=== PATIENT | female | born 1975 | race Caucasian/White ===

== ENCOUNTER 2016-12-10 09:49 | Inpatient (IN) | payer MEDICAID, OTHER ==
[~2016-12-10] VITALS: Ht 167.6 cm; Wt 99.0 kg
[2016-12-10] MEDS ORDERED: NS 1,000 ML IV ONE (10:45)
--- NOTE | 2016-12-10 11:12 | REP ---
PORTABLE CHEST, SINGLE VIEW: COMPARISON: 08/13/2012 There is no evidence of acute infiltrate. No pleural effusion is seen. The heart is normal in size. The mediastinal silhouette is unremarkable. The visualized osseous structures are intact. IMPRESSION: No acute pulmonary disease. Signed by Miller Bedolla MD 12/10/2016 05:02 P
[2016-12-10 12:02] LABS: BASO % 0.4 % (0.0-1.0); EOS # 0.3 K/mm3 (0.0-0.50); EOS % 3.9 % (0.0-3.0); LARGE UNSTAINED CELL # 0.1 K/mm3 (0.0-0.4); LARGE UNSTAINED CELL % 1.2 % (0.0-4.0); LYMPH # 2.3 K/mm3 (1.5-4.5); LYMPH % 27.6 % (24.0-44.0); MEAN CORPUSCULAR HEMOGLOBIN 28.8 pg (27.0-33.0); MEAN CORPUSCULAR HGB CONC 33.4 g/dl (32.0-36.5); MEAN CORPUSCULAR VOLUME 86.3 fl (80.0-96.0); MONO # 0.4 K/mm3 (0.0-0.8); NEUTROPHILS % 61.9 % (36.0-66.0); PLATELET COUNT, AUTOMATED 246 k/mm3 (150-450); RED CELL DISTRIBUTION WIDTH 18.7 % (11.5-14.5)
[2016-12-10 12:14] LABS: CONTROL LINE HCG INT CTR LINE PRESENT
[2016-12-10 12:30] LABS: ALBUMIN 3.3 GM/DL (3.2-5.2); ALKALINE PHOSPHATASE 56 U/L (45-117); ALT/SGPT 32 U/L (12-78); ANION GAP 8 MEQ/L (8-16); AST/SGOT 27 U/L (15-37); BILIRUBIN,DIRECT < 0.1 MG/DL (0.0-0.2); BILIRUBIN,TOTAL 0.2 MG/DL (0.2-1.0); BLOOD UREA NITROGEN 16 MG/DL (7-18); CALCIUM LEVEL 8.2 MG/DL (8.5-10.1); CARBON DIOXIDE LEVEL 28 MEQ/L (21-32); CHLORIDE LEVEL 106 MEQ/L (98-107); CREATININE FOR GFR 0.73 MG/DL (0.55-1.02); GLOMERULAR FILTRATION RATE > 60.0 (>58); GLUCOSE, FASTING 88 MG/DL (70-105); POTASSIUM SERUM 4.1 MEQ/L (3.5-5.1); SODIUM LEVEL 142 MEQ/L (136-145); TOTAL PROTEIN 6.6 GM/DL (6.4-8.2)
--- NOTE | 2016-12-10 13:02 | REP ---
CT Head without contrast HISTORY: Overdose COMPARISON: 09/14/2013 There is no intraparenchymal hemorrhage, acute infarct, mass or midline shift. The ventricular system is normal in appearance. Cavum septi pellucidi and vergae are present. There is no extra cerebral collection. There is no fracture. The visualized sinuses are clear. IMPRESSION: There is no intracranial lesion. Signed by Tico Miller MD 12/10/2016 12:54 P
[2016-12-10] MEDS ORDERED: FLUO10CA8 PO (14:06)
[2016-12-10] MEDS ORDERED: VITMTA PO (14:06)
[2016-12-10] MEDS ORDERED: HYDR-4274 PO (14:06)
[2016-12-10] MEDS ORDERED: LISI-538 PO (14:06)
[2016-12-10] MEDS ORDERED: TRAZ100T4 PO (14:06)
[2016-12-10] MEDS ORDERED: BUSP15TA47 PO (14:06)
[2016-12-10 14:17] LABS: ABG HCO3 21.4 MEQ/L (22.0-26.0); ABG PARTIAL PRESSURE CO2 35.9 mmHg (35.0-45.0); ABG PARTIAL PRESSURE O2 53.3 mmHg (75.0-100.0); ABG STANDARD HCO3 21.7 MEQ/L (22.0-26.0); ABG TOTAL CO2 22.5 MEQ/L (22.0-29.0); ABG pH (ARTERIAL) 7.393 UNITS (7.350-7.450)
[2016-12-10] MEDS ORDERED: ONDANSETRON 4MG/2ML VIAL (J2405) IV PRN (14:45)
[2016-12-10 15:30] VITALS: BP 142/78
[2016-12-10] MEDS: NS 1,000 ML IV SCH (16:01)
[2016-12-10] MEDS: ENOXAPARIN 40 MG/0.4 ML SYRINGE (J1650) SC SCH (16:01)
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
--- NOTE | 2016-12-10 18:32 | REP ---
LEFT ELBOW, FOUR VIEWS: HISTORY: Pain. There is no acute fracture or dislocation. The joint space is normal in appearance. IMPRESSION: There is no acute fracture or dislocation. Signed by Tico Miller MD 12/10/2016 06:36 P
[2016-12-10 20:26] VITALS: BP 160/77
[2016-12-11 00:50] VITALS: BP 138/81
[2016-12-11] MEDS: NS 1,000 ML IV SCH ×3 (03:20→20:33)
[2016-12-11 03:24] VITALS: BP 141/78
[2016-12-11 05:25] LABS: BASO % 0.2 % (0.0-1.0); EOS # 0.3 K/mm3 (0.0-0.50); EOS % 2.9 % (0.0-3.0); LARGE UNSTAINED CELL # 0.2 K/mm3 (0.0-0.4); LARGE UNSTAINED CELL % 1.6 % (0.0-4.0); LYMPH # 2.4 K/mm3 (1.5-4.5); LYMPH % 26.8 % (24.0-44.0); MEAN CORPUSCULAR HEMOGLOBIN 28.3 pg (27.0-33.0); MEAN CORPUSCULAR HGB CONC 33.4 g/dl (32.0-36.5); MEAN CORPUSCULAR VOLUME 84.9 fl (80.0-96.0); MONO # 0.3 K/mm3 (0.0-0.8); MONO % 3.6 % (0.0-5.0); NEUTROPHILS # 5.9 K/mm3 (1.8-7.7); NEUTROPHILS % 64.8 % (36.0-66.0); PLATELET COUNT, AUTOMATED 228 k/mm3 (150-450)
[2016-12-11 05:40] LABS: ALBUMIN 2.8 GM/DL (3.2-5.2); ALBUMIN/GLOBULIN RATIO 0.85 (1.00-1.93); ALKALINE PHOSPHATASE 54 U/L (45-117); ALT/SGPT 30 U/L (12-78); ANION GAP 7 MEQ/L (8-16); AST/SGOT 22 U/L (15-37); BILIRUBIN,TOTAL 0.4 MG/DL (0.2-1.0); BLOOD UREA NITROGEN 11 MG/DL (7-18); CALCIUM LEVEL 7.5 MG/DL (8.5-10.1); CARBON DIOXIDE LEVEL 26 MEQ/L (21-32); CHLORIDE LEVEL 107 MEQ/L (98-107); CREATININE FOR GFR 0.65 MG/DL (0.55-1.02); GLOMERULAR FILTRATION RATE > 60.0 (>58); GLUCOSE, FASTING 102 MG/DL (70-105); SODIUM LEVEL 140 MEQ/L (136-145); TOTAL PROTEIN 6.1 GM/DL (6.4-8.2)
[2016-12-11 08:00] VITALS: BP 126/71
[2016-12-11] MEDS: MULTIVITAMINS/MINERALS THERAP 1 TAB PO SCH (08:48)
[2016-12-11] MEDS: LISINOPRIL 20 MG TAB PO SCH (08:48)
[2016-12-11] MEDS: ENOXAPARIN 40 MG/0.4 ML SYRINGE (J1650) SC SCH (08:48)
--- NOTE | 2016-12-11 10:26 | ECGEPIP ---
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
--- NOTE | 2016-12-11 11:24 | ECGEPIP ---
Stationary ECG Study [facility] Test Date: 2016-12-11 Pat Name: JULIANA KENNEDY Department: Room: - Gender: F Requirements Analyst: EVELYN : 1975 Requested By: VICENTE Woods Order Number: [id number] Reading MD: Vicente Vaughan Measurements Intervals [place] Rate: 76 P: 53 OR: 172 QRS: 27 QRSD: 90 T: 17 QT: 423 QTc: 478 Interpretive Statements SINUS RHYTHM Prolonged QTc Electronically Signed On 12-11-2016 11:24:16 EST by Vicente Vaughan
[2016-12-11 12:00] VITALS: BP 132/75
--- NOTE | 2016-12-11 13:53 | IPNPDOC ---
Text Note Date of Service The patient was seen on 12/11/16. NOTE Subjective: Patient is a 41 year old female with a PMHx of HTN, Depression and Anxiety who presented to the ER with complaints of lethargy and somnolence over the last 11 days. Patient was recently incarcerated for 9 months and has been out for ~2 weeks. She noted that she took her usual medications, and possible a few extra doses, as well as smoking crack. Patient was seen and examined at the bedside. She appears to sleepy, but is awake, alert and oriented. She is complaining about a rash on her body. Objective: Vitals (See below) General: Lying in bed, no acute distress, comfortable, AAOx3 HEENT: NC, AT CVS: RRR, +S1S2 Lungs: Fair air entry b/l, -w/r/r Abdomen: Soft, ND, NT, +BSx4 Extremities: +PPx4, - Edema, - Calf tenderness Skin: Vesicular / scarred / erythematous skin lesions throughout body Assessment and plan: 1. Lethargy - likely 2/2 medication intoxication - 2/2 polypharmacy with Trazodone / Fluoxetine and Crack cocaine - Presented with somnolence and lethargy - Denies any suicidal ideation - Clinically shows improvement - Will continue to monitor on telemetry - Will c/w bedside sitter - c/w IV fluid hydration - Will get Psychiatry consult 2. HTN - BP well controlled - c/w Lisinopril 3. Normocytic anemia - Hg stable 4. Depression and Anxiety - Medications on hold - Awaiting psych evaluation 5. Smoking dependence - c/w nicotine patch 6. DVT prophylaxis - c/w Lovenox VS,Fishbone, I+O VS, Fishbone, I+O Laboratory Tests 12/11/16 05:10 Calcium Level 7.5 L, Aspartate Amino Transf (AST/SGOT) 22, Alanine Aminotransferase (ALT/SGPT) 30, Alkaline Phosphatase 54, Total Bilirubin 0.4 #, Total Protein 6.1 L, Albumin 2.8 L, Red Blood Count 3.68 L, Mean Corpuscular Volume 84.9, Mean Corpuscular Hemoglobin 28.3, Mean Corpuscular Hemoglobin Concent 33.4, Red Cell Distribution Width 18.0 H, Neutrophils (%) (Auto) 64.8, Lymphocytes (%) (Auto) 26.8, Monocytes (%) (Auto) 3.6, Eosinophils (%) (Auto) 2.9, Basophils (%) (Auto) 0.2, Neutrophils # (Auto) 5.9, Lymphocytes # (Auto) 2.4, Monocytes # (Auto) 0.3, Eosinophils # (Auto) 0.3, Basophils # (Auto) 0.0 Vital Signs Date Time Temp Pulse Resp B/P Pulse Ox O2 Delivery O2 Flow Rate FiO2 12/11/16 08:48 141/78 12/11/16 08:00 96.3 78 18 94 Room Air I&O- Last 24 Hours up to 6 AM 12/11/16 06:00 Intake Total 2740 ml Output Total 1500 ml Balance 1240 ml JENS GILBERT MD Dec 11, 2016 13:53
[2016-12-11 16:00] VITALS: BP 132/90
[2016-12-11 20:00] VITALS: BP 156/89
[2016-12-12] VITALS: BP 154/87
[2016-12-12 04:45] VITALS: BP 148/88
[2016-12-12 05:30] LABS: BASO % 0.3 % (0.0-1.0); EOS # 0.4 K/mm3 (0.0-0.50); EOS % 4.7 % (0.0-3.0); LARGE UNSTAINED CELL # 0.2 K/mm3 (0.0-0.4); LARGE UNSTAINED CELL % 2.1 % (0.0-4.0); LYMPH # 2.5 K/mm3 (1.5-4.5); LYMPH % 30.4 % (24.0-44.0); MEAN CORPUSCULAR HEMOGLOBIN 27.6 pg (27.0-33.0); MEAN CORPUSCULAR HGB CONC 32.8 g/dl (32.0-36.5); MEAN CORPUSCULAR VOLUME 84.2 fl (80.0-96.0); MONO # 0.3 K/mm3 (0.0-0.8); MONO % 3.5 % (0.0-5.0); NEUTROPHILS # 4.8 K/mm3 (1.8-7.7); PLATELET COUNT, AUTOMATED 212 k/mm3 (150-450); RED CELL DISTRIBUTION WIDTH 18.1 % (11.5-14.5); WHITE BLOOD COUNT 8.1 K/mm3 (4.0-10.0)
[2016-12-12 05:47] LABS: ALBUMIN 2.9 GM/DL (3.2-5.2); ALBUMIN/GLOBULIN RATIO 0.85 (1.00-1.93); ALKALINE PHOSPHATASE 61 U/L (45-117); ALT/SGPT 33 U/L (12-78); ANION GAP 8 MEQ/L (8-16); AST/SGOT 20 U/L (15-37); BILIRUBIN,TOTAL 0.3 MG/DL (0.2-1.0); BLOOD UREA NITROGEN 7 MG/DL (7-18); CALCIUM LEVEL 7.6 MG/DL (8.5-10.1); CARBON DIOXIDE LEVEL 24 MEQ/L (21-32); CHLORIDE LEVEL 109 MEQ/L (98-107); CREATININE FOR GFR 0.73 MG/DL (0.55-1.02); GLOMERULAR FILTRATION RATE > 60.0 (>58); GLUCOSE, FASTING 108 MG/DL (70-105); MAGNESIUM LEVEL 1.8 MG/DL (1.8-2.4); POTASSIUM SERUM 3.9 MEQ/L (3.5-5.1); SODIUM LEVEL 141 MEQ/L (136-145); TOTAL PROTEIN 6.3 GM/DL (6.4-8.2)
[2016-12-12] MEDS: NS 1,000 ML IV SCH (06:33)
[2016-12-12 08:00] VITALS: BP 160/98
[2016-12-12] MEDS: ENOXAPARIN 40 MG/0.4 ML SYRINGE (J1650) SC SCH (08:26)
[2016-12-12 08:45] VITALS: BP 160/98
[2016-12-12] MEDS: LISINOPRIL 20 MG TAB PO SCH (08:45)
[2016-12-12] MEDS: MULTIVITAMINS/MINERALS THERAP 1 TAB PO SCH (08:45)
[2016-12-12] MEDS ORDERED: HYDROCORTISONE 0.5% CREAM 30 GM TOP PRN (09:00)
[2016-12-12] MEDS ORDERED: HYDR5CR TOP (09:48)
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
[2016-12-12 11:15] VITALS: BP 148/82
--- NOTE | 2016-12-12 12:57 | ECGEPIP ---
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
[2016-12-12] MEDS ORDERED: FLUOXETINE HCL PO (15:50)
[2016-12-12] MEDS ORDERED: TRAZ100T4 PO (15:50)
[2016-12-12] MEDS ORDERED: HYDR-4274 PO (15:50)
--- NOTE | 2016-12-12 15:50 | DSES ---
DATE OF ADMISSION: 12/10/2016 DATE OF DISCHARGE: 12/12/1016 ATTENDING PHYSICIAN: Dr. Jeimy Sears DICTATING PHYSICIAN: Dr. Jeimy Sears PRIMARY CARE PHYSICIAN: Dr. Whitley Villarreal REFERRING PHYSICIAN: None. CONSULTING PHYSICIAN: Dr. Gunderson CONDITION ON DISCHARGE: Stable. FINAL DIAGNOSIS: Lethargy likely secondary to medication intoxication secondary to polypharmacy with trazodone and fluoxetine, as well as crack cocaine. PROCEDURES: None. HISTORY OF PRESENT ILLNESS: This is a 41-year-old female with a past medical history of hypertension, depression, and anxiety, who presented to the emergency room with complaints of lethargy and somnolence over the last 11 days. The patient was recently incarcerated for nine months and has been out for about 2 weeks. She notes that she has taken the usual dose of medications and possibly a few extra doses, as well as smoking crack. HOSPITALIZATION COURSE: 1. Lethargy, likely secondary to medication intoxication secondary to polypharmacy with trazodone, fluoxetine and crack cocaine, who presented with somnolence and lethargy. Denies any suicidal ideation. Clinically, she showed improvement. Poison Control was contacted and we followed their recommendations. The patient had prolonged QTC initially upon admission with QTC around greater than 460. Upon discharge, a repeat QTC was acquired, which showed a QTC around 439, it had been decreasing. The patient was kept on telemetry for greater than 24 hours with bedside sitter. She was continued on intravenous fluid hydration and psychiatric consultation was acquired. 2. Rash, possibly secondary to allergies or eczema. The patient was given hydrocortisone cream. The patient had some relief with hydrocortisone cream. 3. Hypertension. Blood pressure is well controlled with Lisinopril. 4. Normocytic anemia. Hemoglobin remained stable. 5. Depression and anxiety. Medications were put on hold and psychiatry was consulted. 6. Smoking dependence. The patient was given a nicotine patch. 7. Deep vein thrombosis (DVT) prophylaxis. The patient was given Lovenox. DISCHARGE MEDICATIONS: The patient has been discharged home with: - Lisinopril 20 mg by mouth daily - multivitamin one tablet by mouth daily - hydrocortisone topically applied every 8 hours as needed for itching DISCHARGE INSTRUCTIONS: The patient was advised to followup with primary care provider and psychiatry within 7 days. She was transferred to inpatient mental health unit where she will continue to receive treatment. The patient has been advised to remain compliant with treatment plan and medications and return to the emergency room if she experiences any problems. Time spent on discharge: 35 minutes.
[2016-12-12] MEDS ORDERED: BUSP15TA47 PO (15:54)
== END 2016-12-12 13:33 | DRG 812 ==
LOC: M ED 09:49 → M ED INP 14:33 → M PCU 15:30
PROVIDERS: ADMIT Internal Medicine; ATTEND Internal Medicine
DX: T43.211A Poisoning by selective serotonin and norepinephrine reuptake inhibitors, accidental (unintentional), initial encounter (principal); I10 Essential (primary) hypertension; T40.5X1A Poisoning by cocaine, accidental (unintentional), initial encounter; T43.221A Poisoning by selective serotonin reuptake inhibitors, accidental (unintentional), initial encounter; F32.9 Major depressive disorder, single episode, unspecified; F41.9 Anxiety disorder, unspecified; F17.210 Nicotine dependence, cigarettes, uncomplicated; M25.522 Pain in left elbow; D64.9 Anemia, unspecified; F14.10 Cocaine abuse, uncomplicated; F43.10 Post-traumatic stress disorder, unspecified; L30.9 Dermatitis, unspecified; F60.7 Dependent personality disorder; Y92.009 Unspecified place in unspecified non-institutional (private) residence as the place of occurrence of the external cause; Z65.2 Problems related to release from prison; Z79.899 Other long term (current) drug therapy

== ENCOUNTER 2016-12-12 13:35 | Inpatient (IN) | payer MEDICAID ==
[~2016-12-12] VITALS: Ht 165.1 cm; Wt 96.0 kg
[2016-12-12] MEDS: NICOTINE 21MG/24HR 1 EA TRANSDERMAL TD SCH (09:00)
[~2016-12-12 13:35] MED LIST: BUSP15TA47 PO; FLUO10CA8 PO; HYDR-4274 PO; HYDR5CR TOP; LISI-538 PO; TRAZ100T4 PO; VITMTA PO
[2016-12-12 13:53] VITALS: BP 164/86
--- NOTE | 2016-12-12 15:35 | HPEPDOC ---
Medical History and Physical Date of Admission Dec 12, 2016 at 13:35 History and Physical PCP: None ATTENDING: Dr. Vicente Vaughan HPI: 41yoF admitted to [facility] for unspecified depressive disorder, being medically examined today. Pt was admitted to [facility] from 12/10/16-12/12/16 for medical stabilization related to overdose of her trazodone and fluoxetine. Denies any fevers, chills, weakness, fatigue, ROBERT, CP, SOB, cough, palpitations, abdominal pain, N/V/D or changes in bowel or bladder habits. PMHx: Anxiety depression HTN tobacco use PSHX: denies SOCHX: Resides in: [place], living with a friend Marital Status: single Kids: none Employment: unemployed Tobacco use: smoker ETOH: none Illicit Drugs: h/o crack cocaine use. IV Drug Use: Denies Tattoos done unprofessionally: Denies FAMHX: Mother: Alive, heart disease Father: Alive, prostate Ca Siblings: Alive, well Children: none Unexpected deaths due to medical reasons: None. ROS: As noted in HPI, otherwise 11pt ROS of systems reviewed and remarkable only for LMP unknown. PE: GEN: 41yoF, appears stated age. Well-nourished, well developed. No acute distress. Alert and oriented x 3. Pleasant, interactive. HEENT: Normocephalic, atraumatic. Pupils are equal, round, and reactive to light. Extraocular movements are intact. No nystagmus appreciated. Sclera are nonicteric. Conjunctiva without injection. Nose midline. Nasal turbinates without bogginess. EACs both patent BL. TMs both visualized and nuno with good cone of light, no bulging or erythema. No facial asymmetry. Moist mucous membranes. Dentition fair. Pharynx pink and moist, no cobblestoning. Neck supple , trachea midline. No lymphadenopathy or thyromegaly appreciated. CHEST: Regular rate and rhythm, +S1, +S2 LUNGS: Clear to auscultation bilaterally. No wheezes, rales, or rhonchi. Breathing appears symmetric and easy. Patient is speaking in full sentences. No accessory muscle use. ABD: Round, soft, non-tender, non-distended. +Bowel sounds throughout. No rebound or guarding. No costovertebral angle tenderness. EXT: Pulses 2+ bilaterally dorsalis pedis and radial. No lower extremity edema appreciated. SKIN: [place], dry, warm. Capillary refill <2sec. erythematous areas right wrist. appears to be where she had tape applied. There were a few other papular lesions on the wrists B/L. NEURO: Alert and oriented x 3. Cranial nerves III-XII are intact. No focal deficits appreciated. EK12/12/16 SINUS RHYTHM Borderline prolonged QTc Compared to prior tracing of 12-11-16 A&P: 41yoF admitted to [facility] for unspecified depressive disorder 1. Psych. Plan per Psychiatry. EKG on file. 2. Nicotine dependence. Patch available. 3. HTN. Continue Lisinopril. 4. Follow up. No Primary Care Provider. Will attempt to establish PCP on discharge. 5. Dermatitis. Apply Bactroban to areas BID and monitor. 6. Substance use. Per psychiatry. 7. Staff member present throughout exam, Ching FU. Vital Signs Vital Signs Label Value Date Time Patient Temperature 98.0 degrees F 12/12/16 1353 Temperature Source Tympanic 12/12/16 1353 Pulse 80 12/12/16 1353 Respiratory Rate 16 bpm 12/12/16 1353 Blood Pressure Assessment 164/86 (112) 12/12/16 1353 Bedside Pulse Oximetry 98 % 12/12/16 1353 Item Value Date Time Oxygen Delivery Method Room Air 12/12/16 1353 Laboratory Data Labs 24H Item Value Date Time White Blood Count 8.1 K/mm3 12/12/16 0510 Red Blood Count 3.69 M/mm3 L 12/12/16 0510 Hemoglobin 10.2 g/dl L 12/12/16 0510 Hematocrit 31.1 % L 12/12/16 0510 Mean Corpuscular Volume 84.2 fl 12/12/16 0510 Mean Corpuscular Hemoglobin 27.6 pg 12/12/16 0510 Mean Corpuscular Hemoglobin Concent 32.8 g/dl 12/12/16 0510 Red Cell Distribution Width 18.1 % H 12/12/16 0510 Platelet Count 212 k/mm3 12/12/16 0510 Sodium Level 141 MEQ/L 12/12/16 0510 Potassium Level 3.9 MEQ/L 12/12/16 0510 Chloride Level 109 MEQ/L H 12/12/16 0510 Carbon Dioxide Level 24 MEQ/L 12/12/16 0510 Anion Gap 8 MEQ/L 12/12/16 0510 Blood Urea Nitrogen 7 MG/DL 12/12/16 0510 Creatinine 0.73 MG/DL 12/12/16 0510 Glomerular Filtration Rate > 60.0 12/12/16 0510 Fasting Glucose 108 MG/DL H 12/12/16 0510 Calcium Level 7.6 MG/DL L 12/12/16 0510 Magnesium Level 1.8 MG/DL 12/12/16 0510 Total Bilirubin 0.3 MG/DL 12/12/16 0510 Aspartate Amino Transf (AST/SGOT) 20 U/L 12/12/16 0510 Alanine Aminotransferase (ALT/SGPT) 33 U/L 12/12/16 0510 Alkaline Phosphatase 61 U/L 12/12/16 0510 Total Protein 6.3 GM/DL L 12/12/16 0510 Albumin 2.9 GM/DL L 12/12/16 0510 Albumin/Globulin Ratio 0.85 L 12/12/16 0510 Thyroid Stimulating Hormone (TSH) 2.630 uIU/ML 12/10/16 1153 Human Chorionic Gonadotropin, Qual NEGATIVE 12/10/16 1153 Home Medications Scheduled ([Fluoxetine Hcl]) 30 MG PO DAILY DEPRESSION Buspirone HCl (Buspirone HCl) 15 Mg Tab 15 MG PO QID ANXIETY/AGITATION Hydroxyzine HCl (Hydroxyzine HCl) 50 Mg Tab 50 MG PO TID ANXIETY Lisinopril (Lisinopril) 20 Mg Tab 20 MG PO DAILY NEEDS REFILLS - SEE COMMENTS Multivitamins *[facility] STOCKED* (Thera M Plus *[facility] STOCKED*) 1 Tab Tab 1 TAB PO DAILY Trazodone HCl (Trazodone HCl) 100 Mg Tab 100 MG PO QHS INSOMNIA Scheduled PRN Hydrocortisone (Hydrocortisone 0.5%) 1 Dose/30 Gm Cream 1 DOSE TOP Q8H PRN PRN ITCHING Allergies Coded Allergies: No Known Allergies (Unverified , 12/10/16) Maggie Covarrubias Dec 12, 2016 15:35
[2016-12-12] MEDS ORDERED: TRAZ100T4 PO (15:50)
[2016-12-12] MEDS ORDERED: HYDR-4274 PO (15:50)
[2016-12-12] MEDS ORDERED: FLUOXETINE HCL PO (15:50)
[2016-12-12] MEDS ORDERED: BUSP15TA47 PO (15:54)
[2016-12-12] MEDS ORDERED: MAALOX 30 ML SUSP *UDC PO PRN (16:45)
[2016-12-12] MEDS ORDERED: MOM 30ML SUSPENSION UDC PO PRN (16:45)
[2016-12-12] MEDS: busPIRone 5 MG TAB PO SCH ×2 (17:00→20:53)
[2016-12-12] MEDS: MUPIROCIN 2% OINT 22 GM TUBE TOP SCH (20:26)
[2016-12-12] MEDS: hydrOXYzine 50 MG TAB PO SCH (20:53)
[2016-12-12] MEDS: traZODone 50 MG TAB PO PRN (20:53)
[2016-12-13 07:20] VITALS: BP 168/92
[2016-12-13] MEDS ORDERED: NICOTINE 21MG/24HR 1 EA TRANSDERMAL TD SCH ×2 (09:00)
[2016-12-13] MEDS: MUPIROCIN 2% OINT 22 GM TUBE TOP SCH ×2 (09:10→22:10)
[2016-12-13] MEDS: FLUoxetine 10 MG CAP PO SCH (09:11)
[2016-12-13] MEDS: busPIRone 5 MG TAB PO SCH ×4 (09:11→22:11)
[2016-12-13] MEDS: MULTIVITAMINS/MINERALS THERAP 1 TAB PO SCH (09:11)
[2016-12-13] MEDS: LISINOPRIL 20 MG TAB PO SCH (09:13)
[2016-12-13] MEDS: hydrOXYzine 50 MG TAB PO SCH ×3 (09:13→22:11)
[2016-12-13] MEDS: NICOTINE 21MG/24HR 1 EA TRANSDERMAL TD SCH (09:15)
[2016-12-13] MEDS: ACETAMINOPHEN TAB 650MG DOSE (2X325MG) PO PRN ×2 (15:23→22:11)
[2016-12-13 18:00] VITALS: BP 130/70
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
[2016-12-13] MEDS: traZODone 50 MG TAB PO PRN (22:11)
[2016-12-14 06:52] VITALS: BP 143/95
[2016-12-14] MEDS: busPIRone 5 MG TAB PO SCH ×4 (08:09→22:19)
[2016-12-14] MEDS: FLUoxetine 10 MG CAP PO SCH (08:09)
[2016-12-14] MEDS: LISINOPRIL 20 MG TAB PO SCH (08:09)
[2016-12-14] MEDS: hydrOXYzine 50 MG TAB PO SCH ×3 (08:10→22:19)
[2016-12-14] MEDS: MULTIVITAMINS/MINERALS THERAP 1 TAB PO SCH (08:10)
[2016-12-14] MEDS: NICOTINE 21MG/24HR 1 EA TRANSDERMAL TD SCH (08:10)
[2016-12-14] MEDS: MUPIROCIN 2% OINT 22 GM TUBE TOP SCH ×2 (08:10→22:20)
[2016-12-14] MEDS: ACETAMINOPHEN TAB 650MG DOSE (2X325MG) PO PRN (17:48)
[2016-12-14 18:00] VITALS: BP 152/70
[2016-12-14] MEDS: traZODone 50 MG TAB PO PRN (23:46)
[2016-12-15] MEDS: ACETAMINOPHEN TAB 650MG DOSE (2X325MG) PO PRN ×4 (01:14→23:02)
[2016-12-15 06:00] VITALS: BP 126/88
[2016-12-15] MEDS: MUPIROCIN 2% OINT 22 GM TUBE TOP SCH ×2 (08:31→21:33)
[2016-12-15] MEDS: busPIRone 5 MG TAB PO SCH ×4 (08:36→21:32)
[2016-12-15] MEDS: MULTIVITAMINS/MINERALS THERAP 1 TAB PO SCH (08:37)
[2016-12-15] MEDS: hydrOXYzine 50 MG TAB PO SCH ×3 (08:37→21:32)
[2016-12-15] MEDS: FLUoxetine 10 MG CAP PO SCH (08:37)
[2016-12-15] MEDS: LISINOPRIL 20 MG TAB PO SCH (08:37)
[2016-12-15] MEDS: NICOTINE 21MG/24HR 1 EA TRANSDERMAL TD SCH (08:37)
--- NOTE | 2016-12-15 09:31 | IPN ---
DATE: 12/14/2016 SUBJECTIVE: "I'm feeling much better." OBJECTIVE: The patient is improving slowly. The patient does not have psychomotor retardation. Her facial expression is normalized. The patient is interacting well with other peers and staff. The patient is denying suicidal or homicidal ideation. There is no evidence of psychotic symptoms. No auditory or visual hallucinations or delusions. MENTAL STATUS EXAMINATION: The patient is dressed in [facility]. She has fair eye contact. Speech is normal in rate, volume, articulation, is coherent and spontaneous. Mood is euthymic. Affect is congruent with mood. No evidence of delusions or hallucinations. Memory is fair. The patient is fully oriented. Associations are intact. Thinking is logical. Thought content is appropriate. The patient is denying suicidal or homicidal ideation. Insight and judgment is fair. ASSESSMENT: 1. Suboxone/crack overdose. 2. Depression. 3. Polysubstance dependency. PLAN: 1. Continue with Prozac 30 mg by mouth every morning. 2. Continue with BuSpar 50 mg by mouth four times a day. 3. Continue with trazodone 100 mg by mouth at bedtime. 4. Continue medication management, individual and group therapy.
[2016-12-15 18:00] VITALS: BP 152/80
[2016-12-15 21:39] VITALS: BP 152/80
[2016-12-15] MEDS: traZODone 50 MG TAB PO PRN (23:02)
[2016-12-16 06:25] VITALS: BP 158/78
[2016-12-16] MEDS: NICOTINE 21MG/24HR 1 EA TRANSDERMAL TD SCH (08:31)
[2016-12-16] MEDS: FLUoxetine 10 MG CAP PO SCH (08:32)
[2016-12-16] MEDS: busPIRone 5 MG TAB PO SCH ×4 (08:32→21:19)
[2016-12-16] MEDS: hydrOXYzine 50 MG TAB PO SCH ×3 (08:32→21:19)
[2016-12-16] MEDS: ACETAMINOPHEN TAB 650MG DOSE (2X325MG) PO PRN ×3 (08:32→23:00)
[2016-12-16] MEDS: MUPIROCIN 2% OINT 22 GM TUBE TOP SCH ×2 (08:33→21:00)
[2016-12-16] MEDS: LISINOPRIL 20 MG TAB PO SCH (08:33)
[2016-12-16] MEDS: MULTIVITAMINS/MINERALS THERAP 1 TAB PO SCH (08:33)
[2016-12-16 18:00] VITALS: BP 119/64
[2016-12-16] MEDS: traZODone 50 MG TAB PO PRN (22:59)
--- NOTE | 2016-12-17 00:18 | IPN ---
DATE: 12/15/2016 SUBJECTIVE: "I'm feeling a lot better." OBJECTIVE: The patient is significantly improved. The patient is able to smile and joke, is interacting very well with other patients and staff. There is no psychomotor retardation. The patient denies feelings of depression. Denies suicidal or homicidal ideation. No evidence of psychotic features. MENTAL STATUS EXAMINATION: The patient is dressed in [facility]. The patient is calm and cooperative. Has fair eye contact. Speech is normal in rate, volume, articulation, is coherent and is spontaneous. Mood is euthymic. Affect is congruent with mood. No delusions or hallucinations. Memory is fair. The patient is fully oriented. Associations are intact. Thinking is logical. Thought content is appropriate. The patient denies suicidal or homicidal ideation. Insight and judgment is fair. ASSESSMENT: 1. Suboxone/crack cocaine overdose. 2. Depression. 3. Polysubstance dependency. PLAN: 1. Continue Prozac 30 mg by mouth every morning. 2. Continue BuSpar 15 mg by mouth four times a day. 3. Continue trazodone 100 mg by mouth nightly. 4. Continue medication management, individual and group therapy.
[2016-12-17 06:37] VITALS: BP 135/80
[2016-12-17] MEDS: ACETAMINOPHEN TAB 650MG DOSE (2X325MG) PO PRN ×2 (08:17→22:48)
[2016-12-17] MEDS: FLUoxetine 10 MG CAP PO SCH (08:18)
[2016-12-17] MEDS: LISINOPRIL 20 MG TAB PO SCH (08:18)
[2016-12-17] MEDS: MULTIVITAMINS/MINERALS THERAP 1 TAB PO SCH (08:18)
[2016-12-17] MEDS: NICOTINE 21MG/24HR 1 EA TRANSDERMAL TD SCH (08:18)
[2016-12-17] MEDS: hydrOXYzine 50 MG TAB PO SCH ×3 (08:18→20:56)
[2016-12-17] MEDS: busPIRone 5 MG TAB PO SCH ×4 (08:18→20:56)
[2016-12-17] MEDS: MUPIROCIN 2% OINT 22 GM TUBE TOP SCH ×2 (09:00→20:55)
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
[2016-12-17 22:26] VITALS: BP 134/78
[2016-12-17] MEDS: traZODone 50 MG TAB PO PRN (22:48)
[2016-12-18 06:18] VITALS: BP 155/74
[2016-12-18] MEDS ORDERED: NICO21PAT TD (08:18)
[2016-12-18 08:21] VITALS: BP 138/75
[2016-12-18] MEDS: busPIRone 5 MG TAB PO SCH (08:21)
[2016-12-18] MEDS: FLUoxetine 10 MG CAP PO SCH (08:21)
[2016-12-18] MEDS: MULTIVITAMINS/MINERALS THERAP 1 TAB PO SCH (08:21)
[2016-12-18] MEDS: NICOTINE 21MG/24HR 1 EA TRANSDERMAL TD SCH (08:21)
[2016-12-18] MEDS: LISINOPRIL 20 MG TAB PO SCH (08:21)
[2016-12-18] MEDS: hydrOXYzine 50 MG TAB PO SCH (08:21)
[2016-12-18] MEDS: ACETAMINOPHEN TAB 650MG DOSE (2X325MG) PO PRN (08:22)
[2016-12-18] MEDS: MUPIROCIN 2% OINT 22 GM TUBE TOP SCH (08:23)
[2016-12-18] MEDS ORDERED: TRAZO50TA PO (10:27)
[2016-12-18] MEDS ORDERED: FLUO10CA9 PO (10:27)
[2016-12-18] MEDS ORDERED: BUSP5TA PO (10:27)
[2016-12-18] MEDS ORDERED: HYDRO50TAB PO (10:27)
[2016-12-18] MEDS ORDERED: LISI-538 PO (10:43)
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
== END 2016-12-18 10:50 | disposition home or self-care (01) | DRG 755 ==
LOC: M PSY 13:35
PROVIDERS: ADMIT Psychiatry & Neurology Psychiatry; ATTEND Psychiatry & Neurology Psychiatry
DX: F43.23 Adjustment disorder with mixed anxiety and depressed mood (principal); I10 Essential (primary) hypertension; F43.10 Post-traumatic stress disorder, unspecified; F32.9 Major depressive disorder, single episode, unspecified; F17.210 Nicotine dependence, cigarettes, uncomplicated; Z65.2 Problems related to release from prison; F19.10 Other psychoactive substance abuse, uncomplicated; Z79.899 Other long term (current) drug therapy

== ENCOUNTER → 2017-01-06 | Outpatient (REF) | payer MEDICAID ==
[~2017-01-06] MED LIST changes: +BUSP5TA PO; +FLUO10CA9 PO; +FLUOXETINE HCL PO; +HYDRO50TAB PO; +NICO21PAT TD; +TRAZO50TA PO
== END ==
LOC: M LAB REF 17:21
PROVIDERS: ATTEND Physician Assistant Medical
DX: N39.0 Urinary tract infection, site not specified (principal)

== ENCOUNTER 2017-03-08 19:21 | Emergency (ER) | payer MEDICAID ==
[~2017-03-08] VITALS: Ht 165.1 cm; Wt 95.3 kg
[2017-03-08 19:22] VITALS: BP 156/79
[2017-03-08] MEDS ORDERED: XANA1TAB2 PO (19:30)
[2017-03-08] MEDS ORDERED: UNIS25TA2 PO (19:30)
--- NOTE | 2017-03-09 09:28 | ECGEPIP ---
Stationary ECG Study [facility] - ED Test Date: 2017-03-08 Pat Name: JULIANA KENNEDY Department: Room: - Gender: F Synchronizer: ct : 1975 Requested By: PORFIRIO Lamb PA-C Order Number: [id number] Reading MD: Murphy Acosta Measurements Intervals [place] Rate: 71 P: 58 TN: 153 QRS: 38 QRSD: 89 T: 17 QT: 415 QTc: 451 Interpretive Statements SINUS RHYTHM MODERATE VOLTAGE CRITERIA FOR LVH, CONSIDER NORMAL VARIANT SIMILAR TO 12/12/16 Electronically Signed On 03-09-2017 9:28:21 EDT by Murphy Acosta
== END 2017-03-08 20:21 | disposition home or self-care (01) ==
LOC: M ED 19:49
DX: F41.9 Anxiety disorder, unspecified (principal); I10 Essential (primary) hypertension; G56.03 Carpal tunnel syndrome, bilateral upper limbs

== ENCOUNTER 2018-01-07 14:08 | Emergency (ER) | payer MEDICAID | END 2018-01-07 15:47 | disposition home or self-care (01) | LOC: M ED 14:08 | DX: Z76.0 Encounter for issue of repeat prescription (principal); Z79.899 Other long term (current) drug therapy; I10 Essential (primary) hypertension; J44.9 Chronic obstructive pulmonary disease, unspecified; F33.9 Major depressive disorder, recurrent, unspecified; F41.9 Anxiety disorder, unspecified; F43.10 Post-traumatic stress disorder, unspecified; F17.210 Nicotine dependence, cigarettes, uncomplicated | CPT/HCPCS: 99283 ==

== ENCOUNTER 2018-04-01 11:55 | Emergency (ER) | payer MEDICAID, SELFPAY, OTHER | END 2018-04-01 13:19 | disposition home or self-care (01) | LOC: M ED 11:55 | DX: Z76.0 Encounter for issue of repeat prescription (principal); F17.200 Nicotine dependence, unspecified, uncomplicated; Z79.899 Other long term (current) drug therapy | CPT/HCPCS: 99282 ==

== ENCOUNTER 2019-05-17 19:00 | Emergency (ER) | payer MEDICAID, SELFPAY ==
[~2019-05-17] VITALS: Ht 165.1 cm; Wt 79.5 kg
[~2019-05-17 19:00] MED LIST changes: +ALBU17IN2 INH; +BUSP30TA PO; +E-ZMIS3 XX; +FLUO20CA8 PO; +FLUO40CA PO; -HYDR-4274 PO; +HYDR100C PO; +HYDR1TAB33 PO; +HYDR50TA70 PO; -HYDRO50TAB PO; +MIRT30TA3 PO; +PROAAER10 INH; +REME30TA PO; +TRAZ-163 PO; -TRAZ100T4 PO; +TRAZ1TAB10 PO; -TRAZO50TA PO; +UNIS25TA3 PO; +VENTAER IN; +XANA1TAB2 PO
[2019-05-17 19:01] VITALS: BP 140/78
== END 2019-05-17 19:45 | disposition left against medical advice (07) ==
LOC: M ED 19:00
DX: N93.9 Abnormal uterine and vaginal bleeding, unspecified (principal); Z53.21 Procedure and treatment not carried out due to patient leaving prior to being seen by health care provider

== ENCOUNTER → 2019-05-23 | Outpatient (REF) | payer MEDICAID, SELFPAY ==
[2019-05-23 15:04] LABS: HCG, SERUM QUALITATIVE POSITIVE (NEGATIVE)
[2019-05-23 15:15] LABS: HCG, SERUM QUANTITATIVE 628 MIU/ML
== END ==
LOC: M LAB REF 14:22
PROVIDERS: ATTEND Nurse Practitioner Family
DX: Z34.82 Encounter for supervision of other normal pregnancy, second trimester (principal)

== ENCOUNTER 2019-06-20 12:09 | Emergency (ER) | payer MEDICAID ==
[~2019-06-20] VITALS: Ht 165.1 cm; Wt 79.5 kg
[2019-06-20 12:09] VITALS: BP 145/70
[~2019-06-20 12:09] MED LIST changes: -ALBU17IN2 INH; +PROV108A INH
[2019-06-20] MEDS ORDERED: REME30TA PO (12:15)
[2019-06-20] MEDS ORDERED: OFLOSO OTIC (12:49)
== END 2019-06-20 13:01 | disposition home or self-care (01) ==
LOC: M ED 12:09
DX: H72.2X1 Other marginal perforations of tympanic membrane, right ear (principal); I10 Essential (primary) hypertension; J44.9 Chronic obstructive pulmonary disease, unspecified; F17.200 Nicotine dependence, unspecified, uncomplicated; Z79.899 Other long term (current) drug therapy; Z33.1 Pregnant state, incidental; Z3A.01 Less than 8 weeks gestation of pregnancy; Z86.59 Personal history of other mental and behavioral disorders

== ENCOUNTER → 2019-09-13 | Outpatient (CLI) | payer MEDICAID ==
[~2019-09-13] MED LIST changes: +FLUO10CA15 PO; -FLUO10CA8 PO; +FLUO20CA20 PO; -FLUO20CA8 PO; +OFLOSO OTIC
--- NOTE | 2019-09-13 10:31 | REP ---
Clinical: Anatomical evaluation. Comparison: None . Findings: Examination demonstrates a single live intrauterine in breech presentation. motion is identified by technologist. Placenta is noted posterior and grade zero without evidence for placenta previa or abruption. Amniotic fluid volume is normal. Cervix measures 3.8 cm in length and appears closed. No evidence for nuchal cord. Left uterine fibroids measures 6.4 x 6.6 x 6.0 cm and 4.4 x 3.9 x 4.3 cm. Right uterine fibroid measures 5.0 x 3.9 x 4.7 cm. Gestational age by LMP 20 weeks 5 days with MIKAL 01/26/2020 . Gestational age by current measurements 21 weeks 2 days with MIKAL 01/22/2020 . FHR equals 147 beats per minute. BPD 5.1 cm 21 weeks 2 days HC 19.1 cm 21 weeks 2 days AC 16.4 cm 21 weeks 3 days FL 3.5 cm 21 weeks 0 days HL 3.4 cm 21 weeks 3 days HC/AC ratio 1.16 Estimated weight 412 grams ( 67th percentile). Anatomical assessment demonstrates normal structures including cranium, cavum, cerebellum/posterior fossa, lungs, diaphragm, stomach, cord insertion/three-vessel cord, kidneys/bladder, spine, and upper extremities. Limited evaluation of the cord plexus, facial features, heart/ventricular outflow tracts, and lower extremities. Impression: 1. Single live intrauterine in breech presentation demonstrating appropriate interval growth. 2. Anatomical limitations as noted above may warrant reevaluation and follow-up. 3. Multiple uterine fibroids. Electronically Signed by William Styles MD 09/13/2019 10:22 A
== END ==
LOC: M RAD 09:38
PROVIDERS: ATTEND Advanced Practice Midwife
DX: O09.512 Supervision of elderly primigravida, second trimester (principal); O34.10 Maternal care for benign tumor of corpus uteri, unspecified trimester; D25.9 Leiomyoma of uterus, unspecified; Z3A.21 21 weeks gestation of pregnancy

== ENCOUNTER → 2019-11-08 | Outpatient (CLI) | payer OTHER ==
[~2019-11-08] MED LIST changes: -TRAZ-163 PO; +TRAZ-257 PO
--- NOTE | 2019-11-09 01:31 | REP ---
Clinical: Growth evaluation. Comparison: 09/13/2019 . Findings: Examination demonstrates a single live intrauterine in cephalic presentation. motion is identified by technologist. Placenta is noted posterior/fundal and grade I without evidence for placenta previa or abruption. Amniotic fluid volume is normal. Cervix measures 4.2 cm in length and appears closed. Nuchal cord cannot be excluded. Left intramural fibroids measure 4.8 cm and 5.9 cm maximal diameter along with right intramural fibroid measuring 3.7 cm maximal diameter. Gestational age by LMP 28 weeks 5 days with MIKAL 01/26/2020 . Gestational age by current measurements 29 weeks to date with MIKAL 01/22/2020 . FHR equals 124 beats per minute. BPD 7.3 cm 29 weeks 2 days HC 26.9 cm 29 weeks 2 days AC 25.2 cm 29 weeks 3 days FL 5.5 cm 29 weeks 1 day HL 5.0 cm 29 weeks 3 days HC/AC ratio 1.07 Estimated weight 1368 grams ( 56th percentile). Amniotic fluid index: 17.9 cm Umbilical cord SD ratio: 3.10 Impression: 1. Single live intrauterine in cephalic presentation demonstrating appropriate interval growth. 2. Nuchal cord cannot be excluded. 3. Myomatous changes to the uterus. Electronically Signed by William Styles MD 11/09/2019 01:23 A
== END ==
LOC: M RAD 11:17
PROVIDERS: ATTEND Specialist
DX: Z36.2 Encounter for other antenatal screening follow-up (principal); O09.522 Supervision of elderly multigravida, second trimester; Z3A.29 29 weeks gestation of pregnancy

== ENCOUNTER → 2019-11-08 | Outpatient (CLI) | payer OTHER ==
[2019-11-08 11:35] LABS: HEMATOCRIT 34.4 % (36.0-47.0); HEMOGLOBIN 10.6 g/dl (12.0-15.5); MEAN CORPUSCULAR HEMOGLOBIN 28.3 pg (27.0-33.0); MEAN CORPUSCULAR HGB CONC 30.8 g/dl (32.0-36.5); MEAN CORPUSCULAR VOLUME 91.7 fl (80.0-96.0); PLATELET COUNT, AUTOMATED 179 10^3/uL (150-450); RED BLOOD COUNT 3.75 10^6/uL (4.00-5.40); WHITE BLOOD COUNT 10.5 10^3/uL (4.0-10.0)
[2019-11-08 12:02] LABS: GLUCOSE CHALLENGE TEST 1 HOUR 136 MG/DL (LESS THAN 140)
[2019-11-08 12:29] LABS: RUBELLA IgG QUALITATIVE IMMUNE (IMMUNE)
[2019-11-08 12:58] LABS: HIV 1&2 SCREEN CENTAUR NEGATIVE (NEGATIVE)
[2019-11-08 13:14] LABS: CHLAMYDIA DNA AMPLIFICATION NEGATIVE (NEGATIVE); GC DNA AMPLIFICATION NEGATIVE (NEGATIVE)
== END ==
LOC: M LAB 10:23
PROVIDERS: ATTEND Advanced Practice Midwife
DX: Z36.89 Encounter for other specified antenatal screening (principal); O09.513 Supervision of elderly primigravida, third trimester; O09.33 Supervision of pregnancy with insufficient antenatal care, third trimester
CPT/HCPCS: 36415; 82950; 84600; 85027; 86762; 86780; 86803; 86850; 86901; 87088; 87186; 87350; 87389; 87491; 87591; G0480

== ENCOUNTER → 2019-11-23 | Outpatient (CLI) | payer OTHER | LOC: M PLALAB 11:15 | PROVIDERS: ATTEND Advanced Practice Midwife | DX: Z36.8A Encounter for antenatal screening for other genetic defects (principal); Z36.89 Encounter for other specified antenatal screening ==

== ENCOUNTER → 2020-01-05 | Outpatient (REF) | payer OTHER | LOC: M SFHCWAGY 12:47 | PROVIDERS: ATTEND Specialist | DX: Z34.03 Encounter for supervision of normal first pregnancy, third trimester (principal) ==

== ENCOUNTER 2020-01-18 07:38 | Inpatient (IN) | payer OTHER ==
[~2020-01-18] VITALS: Ht 165.1 cm; Wt 106.7 kg
[2020-01-18] VITALS (16 sets, daily range): BP systolic 114–182; BP diastolic 56–90
[2020-01-18 09:31] LABS: HEMATOCRIT 35.6 % (36.0-47.0); HEMOGLOBIN 11.4 g/dl (12.0-15.5); MEAN CORPUSCULAR HEMOGLOBIN 28.4 pg (27.0-33.0); MEAN CORPUSCULAR VOLUME 88.8 fl (80.0-96.0); PLATELET COUNT, AUTOMATED 134 10^3/uL (150-450); RED BLOOD COUNT 4.01 10^6/uL (4.00-5.40); WHITE BLOOD COUNT 9.6 10^3/uL (4.0-10.0)
[2020-01-18] MEDS: miSOPROStol 50 MCG 1/2 TAB (S0191) PO SCH ×3 (09:32→17:38)
[2020-01-18] MEDS ORDERED: PRENTAB9 PO (10:25)
--- NOTE | 2020-01-18 10:40 | HPEPDOC ---
Obstetrical History & Physical General Date of Admission Jan 18, 2020 at 07:38 History of Present Illness 44-year-old 1 presents at 39 weeks 0 days estimated gestational age by 13 week ultrasound presents for induction labor secondary to chronic hypertension. course also remarkable for advanced maternal age, depr ession, anxiety, PTSD, tobacco use, fibroid uterus and compliance of care. 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 BREAST: . ABDOMEN: Gravid and non-tender to touch. FETUS: Is vertex (VTX) by sterile vaginal examination (SVE), fetus is vertex (VTX) by Froilan. HEART RATE: Regular rate and rhythm. LUNGS: Clear to auscultation (CTA). Vital Signs/I&O Vital Signs Date Time Temp Pulse Resp B/P (MAP) Pulse Ox O2 Delivery O2 Flow Rate FiO2 01/18/20 09:20 93 124/74 (91) Laboratory Data 24H LABS Laboratory Tests 2 01/18/20 09:16: Nucleated Red Blood Cells % (auto) 0.0 CBC/BMP Laboratory Tests 01/18/20 09:16 Pertinent Laboratoy Data Blood Type: O+ RBC Antibody Screen: Negative HIV: Negative Hepatitis C: Negative Rapid Plasma Reagin: Nonreactive Rubella: Immune Chlamydia/Gonorrhea: Negative Group B Streptococcus: Negative Anatomy Ultrasound Placenta Location: Posterior Placenta Previa: No Other Ultrasounds 3 Fibroids ranging from 3-5 cm Vaginal Examination Station: -3 Cervical Consistency: Firm Cervical Position: Posterior Presentation: Cephalic presentation Assessment Variability: Moderate Accelerations: Positive Decelerations: None, Variable Tocometer Contractions: No Assessment/Plan Assessment 44-year-old 1 at 39 weeks 0 days by 13 week ultrasound, here for induction of labor secondary to chronic hypertension. History of anxiety, depression and PTSD. Tobacco use throughout . Fibroid uterus. Poor compliance with obstetrical care. Reassuring status Plan Admit and orient. 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 Diet: Regular. Group B Streptococcus (GBS) negative. Labs and intravenous (IV) per unit protocol. Counseled on Pitocin and induction of labor (IOL). Anticipate normal spontaneous delivery (). C-S as appropriate. Labor and Delivery Counseling Patient's been thoroughly counseled regards, induction of labor. Discussed medication as well as procedures performed labor and delivery. She has been verbally consented for emergency surgery. Blood products anesthesia desires to proceed with admission. Will initiate her induction with 50 g oral misoprostol MYNOR BARRON MD. Jan 18, 2020 10:40
[2020-01-18] MEDS ORDERED: TERBUTALINE SULFATE 1 MG/ML VIAL (J3105) SC STA (18:45)
[2020-01-18] MEDS ORDERED: TERBUTALINE SULFATE 1 MG/ML VIAL (J3105) As Ordered ONE (18:45)
[2020-01-18] MEDS ORDERED: LR 1,000 ML IV ONE (19:00)
[2020-01-18] MEDS: ACETAMINOPHEN 500 MG TAB PO PRN (19:35)
--- NOTE | 2020-01-18 20:31 | IPNPDOC ---
Obstetrical Progress Note Date of Service Jan 18, 2020 Subjective Patient received her third dose of misoprostol at approximately 1730. Shortly after started having repetitive variable decelerations. Position was changed was initiated. Patient was given terbutaline with resolution of variable decelerations. Current tracing is a category 1 Objective Vital Signs Date Time Temp Pulse Resp B/P (MAP) Pulse Ox O2 Delivery O2 Flow Rate FiO2 01/18/20 17:41 98.9 85 18 158/70 (99) Assessment Variability: Moderate Accelerations: Positive Heart Rate Tracing: Category I Tocometer Contractions: No Assessment and Plan Age: 44 : 1 Weeks & Days 39 Status: Reassuring Additional Comments Plan to start Pitocin at 2029. I discussed concerns heart tracing earlier with patient. We discussed that if tracing continues with persistent category 2. Proceed with section. MYNOR BARRON MD. Jan 18, 2020 20:31
[2020-01-18 21:14] LABS: AMPHETAMINES URINE REFLEX NEGATIVE (NEGATIVE); BARBITURATES URINE REFLEX NEGATIVE (NEGATIVE); BENZODIAZEPINES URINE REFLEX NEGATIVE (NEGATIVE); CANNABINOIDS URINE REFLEX NEGATIVE (NEGATIVE); COCAINE METABOLITE URINE REFLE NEGATIVE (NEGATIVE); METHADONE URINE REFLEX NEGATIVE (NEGATIVE); OPIATES URINE REFLEX NEGATIVE (NEGATIVE); PHENCYCLIDINE URINE REFLEX NEGATIVE (NEGATIVE)
[2020-01-18] MEDS ORDERED: OXYTOCIN 30 UNITS IN 0.9% NaCl 500ML IV BAG (J2590) As Ordered ONE (21:51)
[2020-01-18] MEDS ORDERED: OXYTOCIN DRIP 30 UNITS in IV 1 EA IV SCH (23:00)
[2020-01-19] VITALS (45 sets, daily range): BP systolic 122–179; BP diastolic 63–98
[2020-01-19] MEDS ORDERED: BUTORPHANOL 2 MG/ML INJ (J0595) IV ONE (02:30)
[2020-01-19] MEDS ORDERED: PROMETHAZINE INJ 25 MG/ML VIAL (J2550) IV PRN (02:30)
[2020-01-19] MEDS: ACETAMINOPHEN 500 MG TAB PO PRN ×2 (03:39→10:14)
[2020-01-19 06:55] LABS: ALT/SGPT 31 U/L (12-78); BILIRUBIN,TOTAL 0.3 MG/DL (0.2-1.0); CREATININE FOR GFR 0.77 MG/DL (0.55-1.30); GLOMERULAR FILTRATION RATE > 60.0 (>58); LDH LACTATE DEHYDROGENASE 171 U/L (84-246)
[2020-01-19 06:57] LABS: TOTAL PROTEIN,RANDOM URINE 59.2 MG/DL (0.0-12.0)
[2020-01-19] MEDS: LR 1,000 ML IV SCH ×2 (12:00→12:02)
[2020-01-19] MEDS ORDERED: AZITHROMYCIN INJ 500MG VIAL (J0456 PER 500MG) As Ordered ONE (15:26)
[2020-01-19] MEDS ORDERED: ceFAZolin 2 GM/D5W 50 ML IV BAG (J0690 PER 500MG) As Ordered ONE (15:26)
[2020-01-19] MEDS ORDERED: AZITHROMYCIN INJ 500 MG, VIAL MATE ADAPTER 1 EACH in D5W 250 ML IV ONE (16:00)
[2020-01-19] MEDS ORDERED: ceFAZolin SOD 2 GM in IV 1 EA IV ONE (16:00)
[2020-01-19] MEDS ORDERED: BICITRA 30ML SOLN UDC PO ONE (16:00)
[2020-01-19] MEDS ORDERED: LR 1,000 ML IV SCH ×2 (16:00→17:39)
[2020-01-19] MEDS ORDERED: ONDANSETRON 4MG/2ML VIAL (J2405 PER 1MG) As Ordered ONE (16:01)
[2020-01-19] MEDS ORDERED: dexameTHASONE 4 MG/ML 1ML VIAL (J1100 PER 1MG) As Ordered ONE (16:01)
[2020-01-19] MEDS ORDERED: ePHEDrine SULFATE 25 MG/5 ML(5MG/ML) SYRINGE As Ordered ONE (16:01)
[2020-01-19] MEDS ORDERED: PHENYLephrine HCL 500 MCG/5 ML (100MCG/ML) SYRINGE (J2370) As Ordered ONE (16:01)
[2020-01-19] MEDS ORDERED: MORPHINE PRES-FREE INJ 10 MG/10 ML VIAL (J2274) As Ordered ONE (16:01)
[2020-01-19] MEDS ORDERED: OXYTOCIN INJ 10 UNITS/ML VIAL (J2590) As Ordered ONE (16:02)
[2020-01-19 16:06] LABS: HEMATOCRIT 36.4 % (36.0-47.0); HEMOGLOBIN 11.7 g/dl (12.0-15.5); MEAN CORPUSCULAR HEMOGLOBIN 28.7 pg (27.0-33.0); MEAN CORPUSCULAR HGB CONC 32.1 g/dl (32.0-36.5); MEAN CORPUSCULAR VOLUME 89.2 fl (80.0-96.0); PLATELET COUNT, AUTOMATED 129 10^3/uL (150-450); RED BLOOD COUNT 4.08 10^6/uL (4.00-5.40); WHITE BLOOD COUNT 8.6 10^3/uL (4.0-10.0)
[2020-01-19] MEDS ORDERED: OXYTOCIN 30 UNITS IN 0.9% NaCl 500ML IV BAG (J2590) As Ordered ONE ×2 (16:56→18:25)
[2020-01-19] MEDS ORDERED: MIDAZOLAM INJ 2MG/2ML VIAL (J2250 PER 1MG) As Ordered ONE (17:04)
[2020-01-19] MEDS ORDERED: KETOROLAC 60 MG/2 ML VIAL (J1885 PER 15MG) As Ordered ONE (17:12)
[2020-01-19] MEDS ORDERED: OXYTOCIN DRIP 30 UNITS in IV 1 EA IV SCH (17:39)
[2020-01-19] MEDS ORDERED: ONDANSETRON 4MG/2ML VIAL (J2405 PER 1MG) IV PRN ×2 (17:45)
[2020-01-19] MEDS ORDERED: ONDANSETRON 4 MG TAB (S0181) PO PRN (17:45)
[2020-01-19] MEDS ORDERED: NALBUPHINE HCL 10 MG/ML AMP (J2300) IV PRN (17:45)
[2020-01-19] MEDS ORDERED: fentaNYL 100 MCG/2 ML INJECTION (J3010) IV PRN (17:45)
[2020-01-19] MEDS ORDERED: NALOXONE INJ 0.4MG/1ML VIAL (J2310 PER 1MG) IV PRN ×2 (17:45)
[2020-01-19] MEDS ORDERED: oxyCODONE 5MG TAB PO PRN (17:45)
[2020-01-19] MEDS ORDERED: ACETAMINOPHEN 500 MG TAB PO PRN (17:45)
[2020-01-19] MEDS ORDERED: diphenhydrAMINE 50MG/ML VIAL (J1200) IV PRN (17:45)
[2020-01-19] MEDS ORDERED: MEASLES,MUMPS,RUBELLA VACCINE INJ (MMR-II) (90707) SC SCH (17:45)
[2020-01-19] MEDS ORDERED: PERCOCET 5MG/325MG TAB PO PRN (17:45)
[2020-01-19] MEDS ORDERED: RHOGAM 300 MCG (1500 IU) INJ (J2790) IM SCH (17:45)
[2020-01-19] MEDS ORDERED: PROMETHAZINE 25 MG TAB PO PRN (17:45)
[2020-01-19] MEDS ORDERED: METOCLOPRAMIDE INJ 10MG/2ML VIAL (J2765 PER 1) IV PRN (17:45)
[2020-01-19] MEDS ORDERED: OXYC1TAB23 PO (17:46)
[2020-01-19] MEDS ORDERED: DOCU100C16 PO (17:49)
[2020-01-19] MEDS ORDERED: IBUP80TA PO (17:49)
[2020-01-19 18:30] LABS: HEMATOCRIT 37.4 % (36.0-47.0); HEMOGLOBIN 11.8 g/dl (12.0-15.5); MEAN CORPUSCULAR HEMOGLOBIN 28.2 pg (27.0-33.0); MEAN CORPUSCULAR HGB CONC 31.6 g/dl (32.0-36.5); MEAN CORPUSCULAR VOLUME 89.3 fl (80.0-96.0); PLATELET COUNT, AUTOMATED 126 10^3/uL (150-450); RED BLOOD COUNT 4.19 10^6/uL (4.00-5.40); WHITE BLOOD COUNT 10.7 10^3/uL (4.0-10.0)
[2020-01-19 18:43] LABS: CREATININE FOR GFR 0.69 MG/DL (0.55-1.30); GLOMERULAR FILTRATION RATE > 60.0 (>58)
[2020-01-19] MEDS: DOCUSATE SODIUM 100 MG CAP PO SCH (21:00)
[2020-01-19] MEDS ORDERED: LABETALOL 100MG/20ML VIAL IV STA ×2 (21:27→22:15)
[2020-01-19 22:25] LABS: HEMATOCRIT 38.7 % (36.0-47.0); HEMOGLOBIN 12.3 g/dl (12.0-15.5); MEAN CORPUSCULAR HEMOGLOBIN 28.2 pg (27.0-33.0); MEAN CORPUSCULAR HGB CONC 31.8 g/dl (32.0-36.5); MEAN CORPUSCULAR VOLUME 88.8 fl (80.0-96.0); PLATELET COUNT, AUTOMATED 146 10^3/uL (150-450); RED BLOOD COUNT 4.36 10^6/uL (4.00-5.40); WHITE BLOOD COUNT 14.4 10^3/uL (4.0-10.0)
[2020-01-19 22:34] LABS: ALBUMIN 2.5 GM/DL (3.2-5.2); ALT/SGPT 30 U/L (12-78); BILIRUBIN,TOTAL 0.3 MG/DL (0.2-1.0); BLOOD UREA NITROGEN 9 MG/DL (7-18); CALCIUM LEVEL 8.7 MG/DL (8.5-10.1); CARBON DIOXIDE LEVEL 23 MEQ/L (21-32); CHLORIDE LEVEL 108 MEQ/L (98-107); CREATININE FOR GFR 0.73 MG/DL (0.55-1.30); GLOMERULAR FILTRATION RATE > 60.0 (>58); GLUCOSE, FASTING 104 MG/DL (70-100); LDH LACTATE DEHYDROGENASE 225 U/L (84-246); POTASSIUM SERUM 4.5 MEQ/L (3.5-5.1); SODIUM LEVEL 139 MEQ/L (136-145); TOTAL PROTEIN 6.2 GM/DL (6.4-8.2); URIC ACID 5.3 MG/DL (2.6-6.0)
[2020-01-19] MEDS: LABETALOL 200 MG TAB PO SCH (22:40)
[2020-01-20] VITALS (13 sets, daily range): BP systolic 114–159; BP diastolic 57–72
[2020-01-20] MEDS: KETOROLAC 30 MG/ML 1ML VIAL (J1885 PER 15MG) IV SCH ×3 (00:12→12:37)
[2020-01-20 07:09] LABS: HEMATOCRIT 30.5 % (36.0-47.0); MEAN CORPUSCULAR HEMOGLOBIN 29.4 pg (27.0-33.0); MEAN CORPUSCULAR HGB CONC 32.8 g/dl (32.0-36.5); MEAN CORPUSCULAR VOLUME 89.7 fl (80.0-96.0); PLATELET COUNT, AUTOMATED 136 10^3/uL (150-450); WHITE BLOOD COUNT 11.5 10^3/uL (4.0-10.0)
[2020-01-20 07:30] LABS: GLOMERULAR FILTRATION RATE > 60.0 (>58)
[2020-01-20] MEDS ORDERED: ENOXAPARIN 60MG/0.6ML SYRINGE (J1650 PER 10MG) SC SCH (09:00)
[2020-01-20] MEDS: LABETALOL 200 MG TAB PO SCH ×3 (09:00→20:23)
[2020-01-20] MEDS: PRENATAL VITAMINS CHEWABLE TABLET PO SCH (09:03)
[2020-01-20] MEDS: PERCOCET 5MG/325MG TAB PO PRN ×2 (09:03→18:44)
[2020-01-20] MEDS: DOCUSATE SODIUM 100 MG CAP PO SCH ×2 (09:03→20:21)
[2020-01-20] MEDS: IBUPROFEN 800 MG TAB PO SCH (20:22)
[2020-01-21] MEDS: PERCOCET 5MG/325MG TAB PO PRN ×2 (01:01→08:42)
[2020-01-21 02:00] VITALS: BP 145/69
[2020-01-21] MEDS: IBUPROFEN 800 MG TAB PO SCH (03:52)
[2020-01-21 06:00] VITALS: BP 146/67
[2020-01-21] MEDS: PRENATAL VITAMINS CHEWABLE TABLET PO SCH (08:38)
[2020-01-21] MEDS: DOCUSATE SODIUM 100 MG CAP PO SCH (08:38)
[2020-01-21 08:42] VITALS: BP 180/82
[2020-01-21] MEDS: LABETALOL 200 MG TAB PO SCH (08:42)
[2020-01-21 09:15] VITALS: BP 146/84
[2020-01-21] MEDS ORDERED: LABE20TAB PO (10:48)
== END 2020-01-21 11:30 | disposition home or self-care (01) | DRG 540 ==
LOC: M LDI 07:38 → M OBS 01-19 19:46
PROVIDERS: ADMIT Obstetrics & Gynecology; ATTEND Obstetrics & Gynecology
PROC: 3E0P7GC Introduction of Other Therapeutic Substance into Female Reproductive, Via Natural or Artificial Opening (ICD-10-PCS; 2020-01-18)
PROC: 10D00Z1 Extraction of Products of Conception, Low, Open Approach (ICD-10-PCS; principal; 2020-01-19 17:32)
DX: O11.4 Pre-existing hypertension with pre-eclampsia, complicating childbirth (principal); F17.210 Nicotine dependence, cigarettes, uncomplicated; Z3A.39 39 weeks gestation of pregnancy; O99.334 Smoking (tobacco) complicating childbirth; O99.344 Other mental disorders complicating childbirth; F43.10 Post-traumatic stress disorder, unspecified; Z91.19 Patient's noncompliance with other medical treatment and regimen; O76 Abnormality in fetal heart rate and rhythm complicating labor and delivery; O61.0 Failed medical induction of labor; Z37.0 Single live birth; O10.02 Pre-existing essential hypertension complicating childbirth

== ENCOUNTER → 2020-05-04 | Outpatient (CLI) | payer MEDICAID ==
[~2020-05-04] MED LIST changes: +DOCU100C16 PO; -FLUO10CA15 PO; +FLUO10CA16 PO; +IBUP80TA PO; +LABE20TAB PO; +NORC1TAB7 PO; +OXYC1TAB23 PO; +PENI500T PO; +PRENTAB9 PO; +PROP40TA62 PO
== END ==
LOC: M OUTALCOH 07:51
PROVIDERS: ATTEND Psychiatry & Neurology Addiction Medicine
DX: Z13.39 Encounter for screening examination for other mental health and behavioral disorders (principal); F15.20 Other stimulant dependence, uncomplicated

== ENCOUNTER → 2020-05-12 | Outpatient (RCR) | payer MEDICAID | LOC: M OUTALCOH 09:00 | PROVIDERS: ATTEND Psychiatry & Neurology Addiction Medicine | DX: F15.20 Other stimulant dependence, uncomplicated (principal); F17.200 Nicotine dependence, unspecified, uncomplicated ==

== ENCOUNTER → 2020-06-12 | Outpatient (RCR) | payer MEDICAID | LOC: M OUTALCOH 05-15 15:00 | PROVIDERS: ATTEND Psychiatry & Neurology Addiction Medicine | DX: F15.20 Other stimulant dependence, uncomplicated (principal); F17.200 Nicotine dependence, unspecified, uncomplicated ==

== ENCOUNTER → 2020-07-12 | Outpatient (RCR) | payer MEDICAID | LOC: M OUTALCOH 06-14 10:48 | PROVIDERS: ATTEND Psychiatry & Neurology Addiction Medicine | DX: F15.20 Other stimulant dependence, uncomplicated (principal); F17.200 Nicotine dependence, unspecified, uncomplicated ==

== ENCOUNTER 2020-07-16 19:41 | Emergency (ER) | payer MEDICAID, MEDICARE ==
[~2020-07-16] VITALS: Ht 165.1 cm; Wt 94.9 kg
[2020-07-16 19:41] VITALS: BP 198/94
[~2020-07-16 19:41] MED LIST changes: -NORC1TAB7 PO; -PENI500T PO; -PROP40TA62 PO
[2020-07-16] MEDS ORDERED: PENI500T PO (20:56)
[2020-07-16] MEDS ORDERED: NORC1TAB7 PO (20:56)
[2020-07-16] MEDS ORDERED: PENICILLIN V POTASSIUM 500 MG TAB PO ONE (21:00)
[2020-07-16] MEDS ORDERED: PROP40TA62 PO (21:00)
[2020-07-16] MEDS ORDERED: NORCO 5/325MG TABLET (BULK FOR ED) PO ONE (21:00)
== END 2020-07-16 21:20 | disposition home or self-care (01) ==
LOC: M ED 19:41
DX: K08.89 Other specified disorders of teeth and supporting structures (principal); R68.84 Jaw pain; I10 Essential (primary) hypertension; F17.200 Nicotine dependence, unspecified, uncomplicated; Z79.891 Long term (current) use of opiate analgesic; Z79.899 Other long term (current) drug therapy

== ENCOUNTER 2020-08-11 10:00 | Outpatient (RCR) | payer MEDICAID ==
[~2020-08-11 10:00] MED LIST changes: +NORC1TAB7 PO; +PENI500T PO; +PROP40TA62 PO
== END 2020-08-12 ==
LOC: M OUTALCOH 10:00
PROVIDERS: ATTEND Psychiatry & Neurology Addiction Medicine
DX: F15.20 Other stimulant dependence, uncomplicated (principal); F17.200 Nicotine dependence, unspecified, uncomplicated

== ENCOUNTER → 2020-08-15 | Outpatient (CLI) | payer OTHER ==
--- NOTE | 2020-08-15 08:29 | REP ---
INDICATION: MIDLINE PROTUSION R/O HERNIA FILE ROOM. COMPARISON: None. TECHNIQUE: Midline abdominal sonography of a palpable finding. FINDINGS: Sonography over the midline abdomen at the site of the palpable finding shows a small sonographic defect in the area of the palpable finding. Protrusion represents intra-abdominal fat. It was not reducible during the exam and there was no bowel evident within the protruding soft tissue. At rest the defect measured 6.7 mm. During Valsalva maneuver it was 8.9 mm. IMPRESSION: Ventral abdominal wall hernia with protrusion of abdominal fat and no bowel herniation visible. Defect measured 6.7 mm at rest, 8.9 mm with Valsalva. It was not reducible. <Electronically signed by Maxwell Garcia > 08/15/20 [id number]
== END ==
LOC: M RAD 07:37
PROVIDERS: ATTEND Physician Assistant Medical
DX: K43.9 Ventral hernia without obstruction or gangrene (principal)

== ENCOUNTER → 2020-09-01 | Outpatient (CLI) | payer OTHER | LOC: M LABSMTC 13:36 | PROVIDERS: ATTEND Family Medicine | DX: Z20.828 Contact with and (suspected) exposure to other viral communicable diseases (principal) ==

== ENCOUNTER → 2020-09-11 | Outpatient (RCR) | payer MEDICAID ==
[~2020-09-11] MED LIST changes: +MIRT-60 PO; -REME30TA PO
== END ==
LOC: M OUTALCOH 08-14 13:01
PROVIDERS: ATTEND Psychiatry & Neurology Addiction Medicine
DX: F15.20 Other stimulant dependence, uncomplicated (principal); F17.200 Nicotine dependence, unspecified, uncomplicated

== ENCOUNTER 2020-09-29 10:00 | Outpatient (RCR) | payer MEDICAID | END 2020-10-12 | LOC: M OUTALCOH 10:00 | PROVIDERS: ATTEND Psychiatry & Neurology Addiction Medicine | DX: F15.20 Other stimulant dependence, uncomplicated (principal); F17.200 Nicotine dependence, unspecified, uncomplicated ==

== ENCOUNTER → 2020-10-05 | Outpatient (CLI) | payer MEDICAID | LOC: M LABSMTC 11:40 | PROVIDERS: ATTEND Anesthesiology | DX: Z01.812 Encounter for preprocedural laboratory examination (principal); Z20.828 Contact with and (suspected) exposure to other viral communicable diseases ==

== ENCOUNTER 2020-10-10 06:06 | Day surgery (SDC) | payer OTHER ==
[~2020-10-10] VITALS: Ht 165.1 cm; Wt 103.1 kg
[~2020-10-10 06:06] MED LIST changes: +LR 1,000 ML IV ONE; +ceFAZolin SOD 2 GM in IV 1 EA IV ONE
[2020-10-10] MEDS ORDERED: BUPIVACAINE HCL 0.25% 10ML VIAL As Ordered ONE (07:10)
[2020-10-10] MEDS ORDERED: BUPIVACAINE LIPOSOME/PF 1.3% 20ML VIAL (13.3MG/ML)(EXPAREL)(C9290 PER1MG) As Ordered ONE (07:10)
[2020-10-10] MEDS ORDERED: LIDOCAINE W/EPINEPHRINE 1% 20ML VIAL As Ordered ONE (07:15)
[2020-10-10] MEDS ORDERED: LIDOCAINE 2% 100MG/5ML SDV (FOR ANES.) As Ordered ONE (07:21)
[2020-10-10] MEDS ORDERED: ROCURONIUM BROMIDE 50 MG/5 ML VIAL As Ordered ONE (07:21)
[2020-10-10] MEDS ORDERED: propofoL 200 MG/20 ML VIAL As Ordered ONE (07:21)
[2020-10-10] MEDS ORDERED: ACETAMINOPHEN 1000MG 100ML IV BTL (OFIRMEV) (J0131 PER 10MG) As Ordered ONE (07:21)
[2020-10-10] MEDS ORDERED: dexameTHASONE 4 MG/ML 1ML VIAL (J1100 PER 1MG) As Ordered ONE (07:21)
[2020-10-10] MEDS ORDERED: SUGAMMADEX SODIUM 500 MG/5 ML VIAL (BRIDION) As Ordered ONE (07:21)
[2020-10-10] MEDS ORDERED: KETOROLAC 60MG 2ML VIAL As Ordered ONE (07:21)
[2020-10-10] MEDS ORDERED: ONDANSETRON 4MG/2ML VIAL As Ordered ONE (07:21)
[2020-10-10] MEDS ORDERED: MIDAZOLAM INJ 2MG/2ML VIAL (J2250 PER 1MG) As Ordered ONE (07:22)
[2020-10-10] MEDS ORDERED: fentaNYL 100 MCG/2 ML INJECTION (J3010) As Ordered ONE (07:22)
[2020-10-10] MEDS ORDERED: LIDOCAINE 5% OINT 30 GM As Ordered ONE (07:45)
[2020-10-10] MEDS ORDERED: ePHEDrine SULFATE 25 MG/5 ML(5MG/ML) SYRINGE As Ordered ONE (08:16)
[2020-10-10] MEDS ORDERED: traMADol 50 MG TAB PO PRN (09:00)
[2020-10-10] MEDS ORDERED: NS 1,000 ML IV SCH (09:00)
[2020-10-10] MEDS ORDERED: NORCO, ANEXSIA 5/325MG TABLET (HYDROcodone/ACETAMINOPHEN) PO PRN (09:00)
[2020-10-10] MEDS ORDERED: fentaNYL 100 MCG/2 ML INJECTION (J3010) IV PRN (09:00)
[2020-10-10] MEDS ORDERED: METOCLOPRAMIDE INJ 10MG/2ML VIAL (J2765 PER 1) IV PRN (09:00)
[2020-10-10] MEDS ORDERED: ONDANSETRON 4MG/2ML VIAL IV PRN (09:00)
[2020-10-10] MEDS ORDERED: KETOROLAC 30 MG/ML 1ML VIAL IV SCH ×2 (09:00→14:30)
[2020-10-10] MEDS ORDERED: LR 1,000 ML IV SCH (09:00)
[2020-10-10] MEDS ORDERED: MORPHINE 2 MG/ML 1ML VIAL (J2270) IV PRN (09:00)
[2020-10-10] MEDS ORDERED: oxyCODONE 5MG TAB PO PRN (09:00)
[2020-10-10 10:20] VITALS: BP 158/87
== END 2020-10-10 10:27 | disposition home or self-care (01) ==
LOC: M SDC 06:06
PROVIDERS: ATTEND Surgery
DX: K43.9 Ventral hernia without obstruction or gangrene (principal); I10 Essential (primary) hypertension; J44.9 Chronic obstructive pulmonary disease, unspecified; F17.218 Nicotine dependence, cigarettes, with other nicotine-induced disorders; Z79.899 Other long term (current) drug therapy; F43.10 Post-traumatic stress disorder, unspecified; F32.9 Major depressive disorder, single episode, unspecified; F31.9 Bipolar disorder, unspecified
CPT/HCPCS: 49570; 81025; 88302; C1781; C9290; J0131; J0690; J1100; J1885; J2250; J2405; J3010

== ENCOUNTER 2020-11-10 14:32 | Outpatient (RCR) | payer MEDICAID ==
[~2020-11-10 14:32] MED LIST changes: -LR 1,000 ML IV ONE; -ceFAZolin SOD 2 GM in IV 1 EA IV ONE
== END 2020-11-12 ==
LOC: M OUTALCOH 14:32
PROVIDERS: ATTEND Psychiatry & Neurology Addiction Medicine
DX: F15.20 Other stimulant dependence, uncomplicated (principal); F17.200 Nicotine dependence, unspecified, uncomplicated

== ENCOUNTER 2020-12-08 11:09 | Outpatient (RCR) | payer MEDICAID ==
[~2020-12-08 11:09] MED LIST changes: -LISI-538 PO; +LISI20TA33 PO
== END 2020-12-10 ==
LOC: M OUTALCOH 11:09
PROVIDERS: ATTEND Psychiatry & Neurology Addiction Medicine
DX: F15.20 Other stimulant dependence, uncomplicated (principal); F17.200 Nicotine dependence, unspecified, uncomplicated

== ENCOUNTER → 2020-12-15 | Outpatient (CLI) | payer MEDICAID ==
--- NOTE | 2020-12-15 10:22 | REP ---
INDICATION: PTHER DYSPNEA COMPARISON: 08/13/2012 TECHNIQUE: PA and lateral. FINDINGS: The mediastinum and cardiac silhouette are normal. The lung urias are clear and without acute consolidation, effusion, or pneumothorax. The skeletal structures are intact and normal. IMPRESSION: No acute cardiopulmonary process. <Electronically signed by William Styles > 12/15/20 [id number]
== END ==
LOC: M WUC 10:02
PROVIDERS: ATTEND Family Medicine Addiction Medicine
DX: R06.09 Other forms of dyspnea (principal)

== ENCOUNTER → 2020-12-15 | Outpatient (CLI) | payer OTHER ==
--- NOTE | 2020-12-15 13:11 | REP ---
INDICATION: Z12.39 SCREENING MAMMO. COMPARISON: None. TECHNIQUE: MLO and CC views of bilateral breasts performed with tomosynthesis. FINDINGS: There is mild to moderate scattered fibroglandular tissue present. A relatively smoothly marginated nodule is seen in the retroareolar region of the left breast approximately 6 mm in diameter. No other mass is seen. There appears to be a grouping of tiny calcifications superiorly and medially. These are best seen in the CC projection. I see no other mass or clustered microcalcifications. The Volpara volumetric breast density pattern is B. IMPRESSION: BIRADS/ACR category 0, incomplete. Smoothly marginated left retroareolar nodule. Recommend spot compression views and ultrasound to further evaluate. In addition there appear to be grouped tiny calcifications superiorly and medially in the left breast. Recommend magnification views of that area to further evaluate. [facility] lifetime breast cancer risk assessment score is 29.9%. This mammogram was interpreted with the aid of an FDA-approved computer-aided detection system. The patient states she had a clinical breast exam in over 1 year ago. The patient letter being requested is M0. RECOMMENDATION: Recommend additional mammographic images left breast and left breast ultrasound as above. Also, given the elevated lifetime risk of breast cancer, recommend supplemental screening MRI of the breasts in 6 months. <Electronically signed by Miller Bedolla > 12/15/20 [id number]
== END ==
LOC: M WHC 11:30
PROVIDERS: ATTEND Family Medicine Addiction Medicine
DX: R92.2 Inconclusive mammogram (principal); N63.25 Unspecified lump in the left breast, overlapping quadrants

== ENCOUNTER → 2020-12-15 | Outpatient (REF) | payer OTHER ==
[2020-12-15 13:32] LABS: ALBUMIN 4.3 GM/DL (3.2-5.2); ALT/SGPT 28 U/L (12-78); BILIRUBIN,TOTAL 0.4 MG/DL (0.2-1.0); BLOOD UREA NITROGEN 20 MG/DL (7-18); CALCIUM LEVEL 9.3 MG/DL (8.5-10.1); CARBON DIOXIDE LEVEL 26 MEQ/L (21-32); CHLORIDE LEVEL 104 MEQ/L (98-107); CHOLESTEROL LEVEL 180 MG/DL (<200); CHOLESTEROL RISK RATIO 6.923 (<5); CREATININE FOR GFR 0.92 MG/DL (0.55-1.30); GLOMERULAR FILTRATION RATE > 60.0 (>58); GLUCOSE, FASTING 102 MG/DL (70-100); HDL CHOLESTEROL 26 MG/DL (>40); LDL CHOLESTEROL 99 MG/DL (<100); NON-HDL-C 154 MG/DL; POTASSIUM SERUM 4.4 MEQ/L (3.5-5.1); SODIUM LEVEL 136 MEQ/L (136-145); TOTAL PROTEIN 7.3 GM/DL (6.4-8.2); TRIGLYCERIDES LEVEL 274 MG/DL (<150)
== END ==
LOC: M LAB REF 12:32
PROVIDERS: ATTEND Family Medicine Addiction Medicine
DX: I10 Essential (primary) hypertension (principal)

== ENCOUNTER 2021-01-08 16:00 | Outpatient (RCR) | payer MEDICAID | END 2021-01-10 | LOC: M OUTALCOH 16:00 | PROVIDERS: ATTEND Psychiatry & Neurology Addiction Medicine | DX: F15.20 Other stimulant dependence, uncomplicated (principal); F17.200 Nicotine dependence, unspecified, uncomplicated ==

== ENCOUNTER → 2021-01-10 | Outpatient (CLI) | payer OTHER ==
--- NOTE | 2021-01-10 16:25 | REP ---
INDICATION: ADDITIONAL VIEWS LT BREAST; ADDITIONAL VIEWS LT BREAST. COMPARISON: 12/15/2020. TECHNIQUE: Spot compression magnification views are performed of the left retroareolar region and upper outer quadrant. Focused left retroareolar ultrasound also performed. FINDINGS: There is persistence of a 5-6 mm smoothly marginated nodule in the left retroareolar region at the 6 o'clock position. The suspected microcalcifications superiorly medially a represent dermal calcifications. These are benign. Real-time sonographic evaluation of the left retroareolar region is performed. There is a complex cyst measuring 4 mm. Adjacent to this there is a 5 mm nodule with internal blood flow. IMPRESSION: BIRADS/ACR category 4 suspicious. Solid-appearing left retroareolar nodule with internal blood flow having a maximum diameter 5 mm. Complex cyst 4 mm in diameter. Recommend ultrasound-guided biopsy of both, with postprocedure mammogram. The suspected microcalcifications actually represent benign dermal calcifications. This mammogram was interpreted with the aid of an FDA-approved computer-aided detection system. The patient letter being requested is M4. RECOMMENDATION: Recommend ultrasound-guided biopsy of 2 retroareolar nodules, and postprocedure mammogram. Also given the patient's elevated lifetime risk of breast cancer 29.9%, supplemental screening MRI of the breasts is recommended. <Electronically signed by Miller Bedolla > 01/10/21 1631
== END ==
LOC: M WHC 10:56
PROVIDERS: ATTEND Family Medicine Addiction Medicine
DX: N63.25 Unspecified lump in the left breast, overlapping quadrants (principal); N60.02 Solitary cyst of left breast

== ENCOUNTER 2021-01-30 11:00 | Outpatient (RCR) | payer MEDICAID | END 2021-02-09 | LOC: M OUTALCOH 11:00 | PROVIDERS: ATTEND Psychiatry & Neurology Psychiatry | DX: F15.20 Other stimulant dependence, uncomplicated (principal); F17.200 Nicotine dependence, unspecified, uncomplicated ==

== ENCOUNTER → 2021-02-22 | Outpatient (CLI) | payer OTHER ==
[2021-02-22 13:54] VITALS: BP 142/88
--- NOTE | 2021-02-22 14:27 | REP ---
INDICATION: R92.8 ABN MAMMO/LEFT BREAST/US GUIDED BX/CK CLIP PLCMT. COMPARISON: 12/15/2020. TECHNIQUE: ML and CC views left breast performed. FINDINGS: Following ultrasound-guided biopsy of a retroareolar nodule, biopsy clip is seen at the site of the nodule. IMPRESSION: Successful ultrasound-guided biopsy of left retroareolar nodule. RECOMMENDATION: Clinical follow-up. <Electronically signed by Miller Bedolla > 02/22/21 [id number]
--- NOTE | 2021-02-23 17:29 | REP ---
INDICATION: R92.8 ABN MAMMO OF LEFT BR/US GUIDED BX. COMPARISON: None. TECHNIQUE: The procedure was performed under the direct supervision of Dr. Bedolla. Patient has a history of a solid appearing left retro-areolar nodule, with internal blood flow, having a maximum diameter 5 mm as well as a complex cyst measuring 4 mm in diameter. These 2 lesions are adjacent to each other in the 6 o'clock position. The risks and benefits of the procedure were explained to the patient and informed consent was obtained. The left breast nodules were localized using ultrasound guidance. The skin was prepped and draped in a sterile fashion. 1% Xylocaine was used as a local anesthetic. Using ultrasound guidance a 14-gauge coaxial needle biopsy system was inserted and8 core biopsy samples were obtained through both nodules. A marker clip (HydroMARK shape 3) was placed at the biopsy site The patient tolerated the procedure well and there were no immediate complications. After the appropriate amount of monitored convalescence, the patient was discharged from the department. FINDINGS: None IMPRESSION: Ultrasound-guided left breast biopsy with marker clip placement. (HydroMARK shape 3) <Electronically signed by Jason Benedict > 02/22/21 [id number] <Electronically signed by Miller Bedolla > 02/23/21 [id number]
== END ==
LOC: M WHCPRO 06:32
PROVIDERS: ATTEND Surgery
DX: N63.25 Unspecified lump in the left breast, overlapping quadrants (principal)

== ENCOUNTER 2021-03-06 15:54 | Outpatient (RCR) | payer MEDICAID | END 2021-03-12 | LOC: M OUTALCOH 15:54 | PROVIDERS: ATTEND Psychiatry & Neurology Psychiatry | DX: F15.20 Other stimulant dependence, uncomplicated (principal); F17.200 Nicotine dependence, unspecified, uncomplicated ==

== ENCOUNTER → 2021-03-16 | Outpatient (CLI) | payer MEDICAID ==
[2021-03-16 16:12] LABS: ALT/SGPT 29 U/L (12-78); BILIRUBIN,TOTAL 0.5 MG/DL (0.2-1.0); BLOOD UREA NITROGEN 19 MG/DL (7-18); CALCIUM LEVEL 9.6 MG/DL (8.5-10.1); CARBON DIOXIDE LEVEL 25 MEQ/L (21-32); CHLORIDE LEVEL 105 MEQ/L (98-107); CHOLESTEROL LEVEL 117 MG/DL (<200); CHOLESTEROL RISK RATIO 5.318 (<5); CREATININE FOR GFR 0.88 MG/DL (0.55-1.30); GLOMERULAR FILTRATION RATE > 60.0 (>58); GLUCOSE, FASTING 92 MG/DL (70-100); HDL CHOLESTEROL 22 MG/DL (>40); LDL CHOLESTEROL 46 MG/DL (<100); NON-HDL-C 95 MG/DL; POTASSIUM SERUM 4.1 MEQ/L (3.5-5.1); SODIUM LEVEL 139 MEQ/L (136-145); TOTAL PROTEIN 7.4 GM/DL (6.4-8.2); TRIGLYCERIDES LEVEL 243 MG/DL (<150)
== END ==
LOC: M WUC 10:19
PROVIDERS: ATTEND Internal Medicine Cardiovascular Disease
DX: E78.5 Hyperlipidemia, unspecified (principal); I11.9 Hypertensive heart disease without heart failure

== ENCOUNTER 2021-04-10 16:00 | Outpatient (RCR) | payer MEDICAID | END 2021-04-11 | LOC: M OUTALCOH 16:00 | PROVIDERS: ATTEND Psychiatry & Neurology Psychiatry | DX: F15.20 Other stimulant dependence, uncomplicated (principal); F17.200 Nicotine dependence, unspecified, uncomplicated ==

== ENCOUNTER → 2021-04-23 | Outpatient (CLI) | payer OTHER ==
--- NOTE | 2021-04-23 18:03 | REP ---
INDICATION: Z01.818 PRE OP EVALUATION. COMPARISON: None. TECHNIQUE: Two views FINDINGS: The superior mediastinal structures are midline. The cardiac silhouette is unremarkable in size, shape, and position. The diaphragmatic surfaces of the lungs are regular, and the costophrenic angles are clear. The pulmonary urias are clear. The imaged osseous structures are intact. Incidental note is made of a calcified granuloma or possibly even a small bone island superimposed over or within the right anterior 5th rib unchanged from 08/13/2012. IMPRESSION: There is no acute cardiopulmonary disease. <Electronically signed by Dakotah Reid > 04/23/21 [id number]
== END ==
LOC: M PLAIMG 16:20 → M PLALAB 16:20
PROVIDERS: ATTEND Surgery
DX: Z01.818 Encounter for other preprocedural examination (principal); R93.89 Abnormal findings on diagnostic imaging of other specified body structures

== ENCOUNTER → 2021-04-24 | Outpatient (REF) | payer OTHER ==
[~2021-04-24] MED LIST changes: +ASPI81CH33 PO; +ATOR40TA75 PO; +CHLO125TA PO; +SPIR-10 PO
[2021-04-24 16:51] LABS: BASO # 0.1 10^3/uL (0.0-0.2); BASO % 0.7 % (0.0-1.0); EOS # 0.2 10^3/uL (0.0-0.5); EOS % 2.3 % (0.0-3.0); HEMATOCRIT 39.7 % (36.0-47.0); HEMOGLOBIN 12.6 g/dl (12.0-15.5); LYMPH # 4.3 10^3/uL (1.5-5.0); LYMPH % 43.6 % (24.0-44.0); MEAN CORPUSCULAR HEMOGLOBIN 28.8 pg (27.0-33.0); MEAN CORPUSCULAR HGB CONC 31.7 g/dl (32.0-36.5); MEAN CORPUSCULAR VOLUME 90.8 fl (80.0-96.0); MONO # 0.6 10^3/uL (0.0-0.8); MONO % 5.8 % (2.0-8.0); NEUTROPHILS # 4.7 10^3/uL (1.5-8.5); NEUTROPHILS % 47.3 % (36.0-66.0); PLATELET COUNT, AUTOMATED 260 10^3/uL (150-450); RED BLOOD COUNT 4.37 10^6/uL (4.00-5.40); WHITE BLOOD COUNT 9.9 10^3/uL (4.0-10.0)
[2021-04-24 17:17] LABS: ALT/SGPT 31 U/L (12-78); BILIRUBIN,TOTAL 0.6 MG/DL (0.2-1.0); BLOOD UREA NITROGEN 16 MG/DL (7-18); CALCIUM LEVEL 9.3 MG/DL (8.5-10.1); CARBON DIOXIDE LEVEL 27 MEQ/L (21-32); CHLORIDE LEVEL 105 MEQ/L (98-107); CHOLESTEROL LEVEL 116 MG/DL (<200); CHOLESTEROL RISK RATIO 4.296 (<5); CREATININE FOR GFR 0.86 MG/DL (0.55-1.30); GLOMERULAR FILTRATION RATE > 60.0 (>58); GLUCOSE, FASTING 93 MG/DL (70-100); HDL CHOLESTEROL 27 MG/DL (>40); LDL CHOLESTEROL 61 MG/DL (<100); NON-HDL-C 89 MG/DL; POTASSIUM SERUM 5.2 MEQ/L (3.5-5.1); SODIUM LEVEL 138 MEQ/L (136-145); TOTAL PROTEIN 7.5 GM/DL (6.4-8.2); TRIGLYCERIDES LEVEL 142 MG/DL (<150)
[2021-04-24 17:38] LABS: APPEARANCE, URINE CLEAR (CLEAR); BACTERIA, URINE AUTO 1+ (NEGATIVE); BILIRUBIN, URINE AUTO NEGATIVE (NEGATIVE); BLOOD, URINE BLOOD NEGATIVE (NEGATIVE); COLOR, URINE YELLOW (YELLOW); GLUCOSE, URINE (UA) AUTO NEGATIVE (NEGATIVE); KETONE, URINE AUTO NEGATIVE (NEGATIVE); LEUKOCYTE ESTERASE, URINE AUTO TRACE (NEGATIVE); NITRITE, URINE AUTO NEGATIVE (NEGATIVE); PROTEIN, URINE AUTO NEGATIVE (NEGATIVE); RBC, URINE AUTO 0 /HPF (0-3); SPECIFIC GRAVITY URINE AUTO 1.009 (1.002-1.035); SQUAMOUS EPITHELIAL CELL UR AU 1 /HPF (0-6); UROBILINOGEN, URINE AUTO 0.2 mg/dL (0.0-2.0); WBC, URINE AUTO 4 /HPF (0-3)
== END ==
LOC: M LAB REF 16:17
PROVIDERS: ATTEND Nurse Practitioner Family
DX: Z79.899 Other long term (current) drug therapy (principal); R92.8 Other abnormal and inconclusive findings on diagnostic imaging of breast

== ENCOUNTER → 2021-04-26 | Outpatient (CLI) | payer MEDICAID | LOC: M LABSMTC 12:05 | PROVIDERS: ATTEND Anesthesiology | DX: Z01.812 Encounter for preprocedural laboratory examination (principal); Z20.822 Contact with and (suspected) exposure to COVID-19 ==

== ENCOUNTER 2021-05-01 08:35 | Day surgery (SDC) | payer OTHER ==
[~2021-05-01] VITALS: Ht 165.1 cm; Wt 99.8 kg
[~2021-05-01 08:35] MED LIST changes: +BUPIVACAINE HCL 0.25% 30ML VIAL As Ordered ONE; +HEPARIN SOD (PORCINE) 5000UNITS/ML 1ML VIAL/SYRINGE SQ ONE; +LIDOCAINE 1% MDV 20ML VIAL SQ PRN; +LIDOCAINE 1% SDV 30ML VIAL As Ordered ONE; +LR 1,000 ML IV ONE; +ceFAZolin SOD 2 GM in IV 1 EA IV ONE
[2021-05-01] MEDS ORDERED: KETOROLAC 60MG 2ML VIAL As Ordered ONE (08:53)
[2021-05-01] MEDS ORDERED: propofoL 200 MG/20 ML VIAL As Ordered ONE ×2 (08:54→11:52)
[2021-05-01] MEDS ORDERED: LIDOCAINE 2% 100MG/5ML SDV (FOR ANES.) As Ordered ONE ×2 (08:54→10:42)
[2021-05-01] MEDS ORDERED: MIDAZOLAM INJ 2MG/2ML VIAL (J2250 PER 1MG) As Ordered ONE (08:54)
[2021-05-01] MEDS ORDERED: fentaNYL 100 MCG/2 ML INJECTION (J3010) As Ordered ONE ×2 (08:54→09:45)
[2021-05-01] MEDS ORDERED: dexameTHASONE 4 MG/ML 1ML VIAL (J1100 PER 1MG) As Ordered ONE (08:55)
[2021-05-01] MEDS ORDERED: ONDANSETRON 4MG/2ML VIAL As Ordered ONE (08:55)
[2021-05-01] MEDS ORDERED: ePHEDrine SULFATE 25 MG/5 ML(5MG/ML) SYRINGE As Ordered ONE (11:25)
[2021-05-01] MEDS ORDERED: ACETAMINOPHEN 1000MG 100ML IV BTL (OFIRMEV) (J0131 PER 10MG) As Ordered ONE (11:48)
[2021-05-01] MEDS ORDERED: ULTR50TA8 PO (12:51)
[2021-05-01] MEDS ORDERED: fentaNYL 100 MCG/2 ML INJECTION (J3010) IV PRN (12:55)
[2021-05-01] MEDS ORDERED: ONDANSETRON 4MG/2ML VIAL IV PRN (12:55)
[2021-05-01] MEDS ORDERED: HYDROMORPHONE HCL 0.5 MG/ 0.5 ML SYRINGE (J1170 PER 1) IV PRN (12:55)
[2021-05-01] MEDS ORDERED: LR 1,000 ML IV SCH (12:55)
[2021-05-01] MEDS ORDERED: oxyCODONE 5MG TAB PO PRN (12:55)
[2021-05-01 14:11] VITALS: BP 140/72
--- NOTE | 2021-05-02 21:37 | ROOPDOC ---
[facility] Report Of Operation Report of Operation DATE OF PROCEDURE: 05/01/21 PREPROCEDURE DIAGNOSES: left breast intraductal papilloma POSTPROCEDURE DIAGNOSES: same PROCEDURE PERFORMED: Left breast excisional biopsy with intraop wire placement SURGEON: Dr Ashvin Ralph ANESTHESIA: general ESTIMATED BLOOD LOSS: Approximately 15 mL. COMPLICATIONS: none REMARKS: clip is seen in the specimen on intraop radiography PROCEDURE NOTE: INDICATIONS: Ms. Massiel Garrett is a 45-year-old woman who was found to have a suspicious left breast lesion on screening mammogram. This was evaluated with left breast US and sonographic correlate was found. US guided biopsy of the left breast sonographic correlate was done and pathology came back as intraductal papilloma. Excisional biopsy of the left breast was offered to the patient. She was medically cleared for surgery by her primary care doctor. Risks and possible complications of surgical procedure including bleeding, in fection and injury to surrounding structures were explained to the patient and she wished to proceed. Consent was signed. My initials were placed on the operative site. Subcutaneous injection of 5000 units of heparin was done in Preop. DETAILS: Patient was taken to the operating room and placed on the operating room table. A sign in was called stating patients name, date of and the procedure to be done. Preoperative antibiotics were infused. Smooth induction of general anesthesia was done. Patients hands were extended on arm rests. Care was taken not to over extend the arms. Pillow was placed under the knees and a foam was placed under the heels. Sequential compression devices were placed and assured to function correctly. Procedure was started with left breast intraop wire localization. Appropriate time out was done and patients name, date of , and the procedure to be done were confirmed. Left breast was cleaned by me. Intraoperative ultrasound was used to confirm location of the Hydromark clip. Location of the clip was marked on the skin as well. 21 G K[place] Breast Lesion Localization Needle was used to place 25 cm wire. The wire was placed next to the clip. The end of the wire was passed slightly distal to the clip. The images were captured confirming adequate placement of the localizing wire. Floor Manager assisted with the wire placement. Next, patients left breast and axilla were prepped and draped in the usual fashion. Care was taken not to displace the wire. Appropriate time out was done again prior second part of the procedure. Patients name, date of , and the procedure to be done were confirmed. Next, local anesthetic using 1% lidocaine and 0.25 % Marcaine 50/50 mix was injected at the site of planned inferior periareolar incision. The incision was made with the scalpel. Subcutaneous skin flaps were raised and the guide wire was carefully pulled into the wound. Dissection was carries along the wire until the previously marked on the skin area of target lesion location was enc ountered. At this point, wider excision of the tissue surrounding the wire was done. The Hydromark clip was identified in the tissue with intraoperative hockey stick ultrasound probe. The end of the wire was identified with palpation. The excisional biopsy specimen was carefully removed from the breast keeping its proper orientation and moved to the back table where margins were marked with the surgical inking kit following the standard colors recommendations. The specimen measured 3x2x2 cm. Specimen was then placed on the grid and placed in [employer] Specimen Imaging System. The image revealed the wire and the Hydromark in the specimen. The specimen was labeled with patients name and left excisional biopsy and sent to pathology. Next, the wound was irrigated thoroughly and adequate hemostasis was assured. Additional local anesthetic was injected into surrounding tissues. space was approximated with 2-0 Vicryl. The dermis was closed with 3-0 Vicryl and skin was closed with 4-0 Monocryl. Surgical glue was placed over the incision. Patient emerged from the anesthesia without any problems. Fluffs were placed over the operative site and patients chest was wrapped snuggly in the BRITTA wrap. Sponge and instrument counts were done and were correct. Patient tolerated procedure well and was taken to recovery unit in stable condition. ASHVIN RALPH DO May 01, 2021 20:28
== END 2021-05-01 14:13 | disposition home or self-care (01) ==
LOC: M SDC 08:35
PROVIDERS: ATTEND Surgery
DX: D24.2 Benign neoplasm of left breast (principal); N60.82 Other benign mammary dysplasias of left breast; I11.9 Hypertensive heart disease without heart failure; R06.02 Shortness of breath; R07.2 Precordial pain; R94.31 Abnormal electrocardiogram [ECG] [EKG]; E78.00 Pure hypercholesterolemia, unspecified; M19.90 Unspecified osteoarthritis, unspecified site; F41.9 Anxiety disorder, unspecified; F32.9 Major depressive disorder, single episode, unspecified; R51.9 Headache, unspecified; F43.10 Post-traumatic stress disorder, unspecified; R06.83 Snoring; Z87.891 Personal history of nicotine dependence; N39.0 Urinary tract infection, site not specified; Z79.899 Other long term (current) drug therapy; Z79.82 Long term (current) use of aspirin
CPT/HCPCS: 19125; 76942; 81025; 88305; 88341; 88342; J0131; J0690; J1100; J1644; J1885; J2250; J2405; J3010

== ENCOUNTER 2021-05-10 17:35 | Emergency (ER) | payer OTHER ==
[~2021-05-10] VITALS: Ht 165.1 cm; Wt 98.8 kg
[~2021-05-10 17:35] MED LIST changes: -BUPIVACAINE HCL 0.25% 30ML VIAL As Ordered ONE; +FLUO-96 PO; -FLUO10CA16 PO; +FLUO10CA18 PO; -FLUO20CA20 PO; -HEPARIN SOD (PORCINE) 5000UNITS/ML 1ML VIAL/SYRINGE SQ ONE; -LIDOCAINE 1% MDV 20ML VIAL SQ PRN; -LIDOCAINE 1% SDV 30ML VIAL As Ordered ONE; -LR 1,000 ML IV ONE; +ULTR50TA8 PO; -ceFAZolin SOD 2 GM in IV 1 EA IV ONE
[2021-05-10 18:13] LABS: BASO # 0.1 10^3/uL (0.0-0.2); BASO % 0.7 % (0.0-1.0); EOS # 0.4 10^3/uL (0.0-0.5); EOS % 3.6 % (0.0-3.0); HEMATOCRIT 38.5 % (36.0-47.0); HEMOGLOBIN 12.6 g/dl (12.0-15.5); LYMPH # 4.4 10^3/uL (1.5-5.0); LYMPH % 43.6 % (24.0-44.0); MEAN CORPUSCULAR HEMOGLOBIN 29.2 pg (27.0-33.0); MEAN CORPUSCULAR HGB CONC 32.7 g/dl (32.0-36.5); MEAN CORPUSCULAR VOLUME 89.1 fl (80.0-96.0); MONO # 0.4 10^3/uL (0.0-0.8); MONO % 4.3 % (2.0-8.0); NEUTROPHILS # 4.8 10^3/uL (1.5-8.5); NEUTROPHILS % 47.3 % (36.0-66.0); PLATELET COUNT, AUTOMATED 251 10^3/uL (150-450); RED BLOOD COUNT 4.32 10^6/uL (4.00-5.40); WHITE BLOOD COUNT 10.2 10^3/uL (4.0-10.0)
[2021-05-10 18:37] LABS: BLOOD UREA NITROGEN 20 MG/DL (7-18); CARBON DIOXIDE LEVEL 27 MEQ/L (21-32); CHLORIDE LEVEL 108 MEQ/L (98-107); CREATININE FOR GFR 0.83 MG/DL (0.55-1.30); GLOMERULAR FILTRATION RATE > 60.0 (>58); GLUCOSE, FASTING 106 MG/DL (70-100); POTASSIUM SERUM 3.7 MEQ/L (3.5-5.1); SODIUM LEVEL 140 MEQ/L (136-145)
[2021-05-10] MEDS ORDERED: ISOVUE-370 76% 100ML VIAL As Ordered ONE (19:12)
[2021-05-10] MEDS ORDERED: NITROGLYCERIN 0.4 MG SUBL TABLET SL STA (19:46)
[2021-05-10 19:48] VITALS: BP 229/111
[2021-05-10 21:30] VITALS: BP 140/70
== END 2021-05-10 21:42 | disposition home or self-care (01) ==
LOC: M ED 17:35
DX: R07.89 Other chest pain (principal); R06.02 Shortness of breath; I10 Essential (primary) hypertension; E78.5 Hyperlipidemia, unspecified; F41.9 Anxiety disorder, unspecified; Z77.098 Contact with and (suspected) exposure to other hazardous, chiefly nonmedicinal, chemicals; Z79.899 Other long term (current) drug therapy; Z79.82 Long term (current) use of aspirin
CPT/HCPCS: 36415; 71045; 71275; 80048; 84443; 84702; 85025; 93005; 93041; 94760; 99285; Q9967

== ENCOUNTER 2021-05-11 13:13 | Outpatient (RCR) | payer MEDICAID ==
[~2021-05-11 13:13] MED LIST changes: -FLUO-96 PO; +FLUO10CA16 PO; -FLUO10CA18 PO; +FLUO20CA20 PO
== END 2021-05-12 ==
LOC: M OUTALCOH 13:13
PROVIDERS: ATTEND Psychiatry & Neurology Psychiatry
DX: F15.20 Other stimulant dependence, uncomplicated (principal); F17.200 Nicotine dependence, unspecified, uncomplicated

== ENCOUNTER → 2021-06-12 | Outpatient (RCR) | payer MEDICAID | LOC: M OUTALCOH 15:43 | PROVIDERS: ATTEND Psychiatry & Neurology Psychiatry | DX: F15.20 Other stimulant dependence, uncomplicated (principal); F17.200 Nicotine dependence, unspecified, uncomplicated ==

== ENCOUNTER 2021-07-17 16:00 | Outpatient (RCR) | payer MEDICAID | END 2021-08-12 | LOC: M OUTALCOH 16:00 | PROVIDERS: ATTEND Psychiatry & Neurology Psychiatry | DX: F15.20 Other stimulant dependence, uncomplicated (principal); F17.200 Nicotine dependence, unspecified, uncomplicated ==

== ENCOUNTER → 2021-10-22 | Outpatient (CLI) | payer OTHER ==
[~2021-10-22] MED LIST changes: +FLUO-96 PO; -FLUO10CA16 PO; +FLUO10CA18 PO; -FLUO20CA20 PO
[2021-10-22 15:53] LABS: BLOOD UREA NITROGEN 18 MG/DL (7-18); CARBON DIOXIDE LEVEL 29 MEQ/L (21-32); CHLORIDE LEVEL 106 MEQ/L (98-107); CREATININE FOR GFR 0.87 MG/DL (0.55-1.30); GLOMERULAR FILTRATION RATE > 60.0 (>58); GLUCOSE, FASTING 117 MG/DL (70-100); POTASSIUM SERUM 4.7 MEQ/L (3.5-5.1); SODIUM LEVEL 140 MEQ/L (136-145)
== END ==
LOC: M PLALAB 12:58
PROVIDERS: ATTEND Surgery
DX: Z91.89 Other specified personal risk factors, not elsewhere classified (principal)

== ENCOUNTER → 2021-10-23 | Outpatient (CLI) | payer OTHER ==
[~2021-10-23] MED LIST changes: +PROHANCE 279.3MG/ML 15ML VIAL As Ordered ONE; +PROHANCE 279.3MG/ML 5ML VIAL As Ordered ONE
== END ==
LOC: M RAD 13:13
PROVIDERS: ATTEND Surgery
DX: Z12.31 Encounter for screening mammogram for malignant neoplasm of breast (principal); Z91.89 Other specified personal risk factors, not elsewhere classified
CPT/HCPCS: 77049; A9576

== ENCOUNTER → 2021-11-13 | Outpatient (CLI) | payer OTHER ==
[~2021-11-13] MED LIST changes: -PROHANCE 279.3MG/ML 15ML VIAL As Ordered ONE; -PROHANCE 279.3MG/ML 5ML VIAL As Ordered ONE
[2021-11-13 10:50] LABS: BLOOD UREA NITROGEN 16 MG/DL (7-18); CALCIUM LEVEL 9.2 MG/DL (8.5-10.1); CARBON DIOXIDE LEVEL 23 MEQ/L (21-32); CHLORIDE LEVEL 107 MEQ/L (98-107); CREATININE FOR GFR 0.83 MG/DL (0.55-1.30); GLOMERULAR FILTRATION RATE > 60.0 (>58); GLUCOSE, FASTING 125 MG/DL (70-100); POTASSIUM SERUM 4.1 MEQ/L (3.5-5.1); SODIUM LEVEL 140 MEQ/L (136-145)
== END ==
LOC: M LAB 10:01
PROVIDERS: ATTEND Internal Medicine Interventional Cardiology
DX: I10 Essential (primary) hypertension (principal)

== ENCOUNTER 2021-12-04 15:47 | Outpatient (RCR) | payer MEDICAID | END 2021-12-10 | LOC: M OUTALCOH 15:47 | PROVIDERS: ATTEND Psychiatry & Neurology Psychiatry | DX: F15.20 Other stimulant dependence, uncomplicated (principal); F17.200 Nicotine dependence, unspecified, uncomplicated ==

== ENCOUNTER → 2021-12-17 | Outpatient (CLI) | payer OTHER | LOC: M WHC 10:57 | PROVIDERS: ATTEND Surgery | DX: Z91.89 Other specified personal risk factors, not elsewhere classified (principal) ==

== ENCOUNTER → 2021-12-24 | Outpatient (CLI) | payer MEDICAID | LOC: M EKG 15:45 | PROVIDERS: ATTEND Orthopaedic Surgery | DX: Z01.810 Encounter for preprocedural cardiovascular examination (principal) ==

== ENCOUNTER 2022-01-08 12:57 | Outpatient (RCR) | payer MEDICAID | END 2022-01-10 | LOC: M OUTALCOH 12:57 | PROVIDERS: ATTEND Psychiatry & Neurology Psychiatry | DX: F15.20 Other stimulant dependence, uncomplicated (principal) ==

== ENCOUNTER → 2022-01-14 | Outpatient (REF) | payer MEDICAID | LOC: M LAB REF 22:07 | PROVIDERS: ATTEND Physician Assistant | DX: E50.9 Vitamin A deficiency, unspecified (principal); R05.9 Cough, unspecified ==

== ENCOUNTER 2022-02-06 13:52 | Outpatient (RCR) | payer MEDICAID | END 2022-02-09 | LOC: M OUTALCOH 13:52 | PROVIDERS: ATTEND Psychiatry & Neurology Psychiatry | DX: F15.20 Other stimulant dependence, uncomplicated (principal) ==

== ENCOUNTER → 2022-03-12 | Outpatient (RCR) | payer MEDICAID | LOC: M OUTALCOH 02-11 14:00 | PROVIDERS: ATTEND Psychiatry & Neurology Psychiatry | DX: F15.20 Other stimulant dependence, uncomplicated (principal) ==

== ENCOUNTER 2022-03-30 00:10 | Emergency (ER) | payer MEDICAID ==
[~2022-03-30] VITALS: Ht 165.1 cm; Wt 107.2 kg
[2022-03-30 00:11] VITALS: BP 158/73
[2022-03-30] MEDS ORDERED: METO1TAB7 PO (00:17)
[2022-03-30] MEDS ORDERED: METO1TAB32 PO (00:17)
[2022-03-30] MEDS ORDERED: BUSP15TA47 PO (00:18)
[2022-03-30] MEDS ORDERED: OMEP40CA4 PO (00:18)
[2022-03-30] MEDS ORDERED: VIST50CA PO (00:19)
[2022-03-30] MEDS ORDERED: ISOS30TAB PO (00:20)
[2022-03-30] MEDS ORDERED: LOSA100T45 PO (00:21)
[2022-03-30] MEDS ORDERED: AMLO25TA PO (00:22)
[2022-03-31] MEDS ORDERED: BAYE325T13 PO (02:00)
[2022-03-31] MEDS ORDERED: ISOS1TAB36 PO (02:00)
[2022-03-31] MEDS ORDERED: HYDR50TA70 PO (02:01)
[2022-03-31] MEDS ORDERED: LORA-674 PO (02:01)
[2022-03-31] MEDS ORDERED: ATOR80TA59 PO (02:02)
[2022-03-31] MEDS ORDERED: BUSP15TA47 PO (02:04)
[2022-03-31] MEDS ORDERED: PROV10TA PO (16:11)
== END 2022-03-30 04:43 | disposition left against medical advice (07) ==
LOC: M ED 00:10
DX: Z53.29 Procedure and treatment not carried out because of patient's decision for other reasons (principal)

== ENCOUNTER 2022-03-30 19:30 | Observation (INO) | payer MEDICAID ==
[~2022-03-30] VITALS: Ht 165.1 cm; Wt 107.0 kg
[~2022-03-30 19:30] MED LIST changes: +AMLO25TA PO; +ISOS30TAB PO; +LOSA100T45 PO; +METO1TAB32 PO; +METO1TAB7 PO; +OMEP40CA4 PO; +VIST50CA PO
[2022-03-30 20:44] LABS: BASO # 0.1 10^3/uL (0.0-0.2); BASO % 0.7 % (0.0-1.0); EOS # 0.3 10^3/uL (0.0-0.5); EOS % 3.6 % (0.0-3.0); HEMOGLOBIN 9.5 g/dl (12.0-15.5); LYMPH # 3.5 10^3/uL (1.5-5.0); LYMPH % 45.3 % (24.0-44.0); MEAN CORPUSCULAR HGB CONC 32.8 g/dl (32.0-36.5); MEAN CORPUSCULAR VOLUME 88.4 fl (80.0-96.0); MONO # 0.4 10^3/uL (0.0-0.8); MONO % 5.3 % (2.0-8.0); NEUTROPHILS # 3.4 10^3/uL (1.5-8.5); NEUTROPHILS % 44.6 % (36.0-66.0); PLATELET COUNT, AUTOMATED 224 10^3/uL (150-450); RED BLOOD COUNT 3.28 10^6/uL (4.00-5.40); WHITE BLOOD COUNT 7.7 10^3/uL (4.0-10.0)
[2022-03-30 20:54] LABS: INR 0.93; PROTHROMBIN TIME 12.9 SECONDS (12.7-14.5)
[2022-03-30 20:55] LABS: PARTIAL THROMBOPLASTIN TIME 32.6 SECONDS (25.9-37.0)
[2022-03-30 21:30] LABS: BLOOD UREA NITROGEN 15 MG/DL (7-18); CARBON DIOXIDE LEVEL 28 MEQ/L (21-32); CHLORIDE LEVEL 109 MEQ/L (98-107); CREATININE FOR GFR 0.78 MG/DL (0.55-1.30); GLOMERULAR FILTRATION RATE > 60.0 (>58); GLUCOSE, FASTING 99 MG/DL (70-100); HCG, SERUM QUANTITATIVE < 1.0 MIU/ML; SODIUM LEVEL 142 MEQ/L (136-145)
[2022-03-31] VITALS (16 sets, daily range): BP systolic 115–173; BP diastolic 60–94
[2022-03-31] MEDS ORDERED: NS 1,000 ML IV ONE
[2022-03-31] MEDS ORDERED: LR 1,000 ML IV SCH (01:35)
[2022-03-31] MEDS ORDERED: ONDANSETRON 4MG 2ML VIAL IV PRN (01:35)
[2022-03-31] MEDS ORDERED: ACETAMINOPHEN TAB 650MG DOSE (2X325MG) PO PRN (01:35)
[2022-03-31 02:00] LABS: RSV AMPLIFICATION NEGATIVE (NEGATIVE)
[2022-03-31] MEDS ORDERED: ISOS1TAB36 PO (02:00)
[2022-03-31] MEDS ORDERED: BAYE325T13 PO (02:00)
[2022-03-31] MEDS ORDERED: LORA-674 PO (02:01)
[2022-03-31] MEDS ORDERED: HYDR50TA70 PO (02:01)
[2022-03-31] MEDS ORDERED: ATOR80TA59 PO (02:02)
[2022-03-31] MEDS ORDERED: BUSP15TA47 PO (02:04)
[2022-03-31] MEDS ORDERED: HOME MED LIST COMPLETE! XX SCH (02:05)
[2022-03-31] MEDS ORDERED: NS 1,000 ML IV SCH ×2 (05:40)
[2022-03-31] MEDS ORDERED: medroxyPROGESTERone 5MG TABLET PO SCH (06:00)
[2022-03-31] MEDS ORDERED: LOSARTAN 50MG TABLET PO SCH (09:00)
[2022-03-31] MEDS ORDERED: METOPROLOL SUCC *XL* 25MG TAB (TopROL *XL*) PO SCH (09:00)
[2022-03-31] MEDS ORDERED: ISOSORBIDE MON. (IMDUR) 60 MG XR TAB PO SCH (09:00)
[2022-03-31] MEDS ORDERED: busPIRone 5 MG TAB PO SCH (09:00)
[2022-03-31] MEDS ORDERED: amLODIPine 5 MG TAB PO SCH (09:00)
[2022-03-31] MEDS ORDERED: hydrOXYzine 50 MG TAB PO SCH (09:00)
[2022-03-31] MEDS ORDERED: OMEPRAZOLE 20MG CAP PO SCH (09:00)
[2022-03-31 13:58] LABS: HEMATOCRIT 31.5 % (36.0-47.0); HEMOGLOBIN 10.5 g/dl (12.0-15.5); MEAN CORPUSCULAR HEMOGLOBIN 29.6 pg (27.0-33.0); MEAN CORPUSCULAR HGB CONC 33.3 g/dl (32.0-36.5); MEAN CORPUSCULAR VOLUME 88.7 fl (80.0-96.0); PLATELET COUNT, AUTOMATED 208 10^3/uL (150-450); RED BLOOD COUNT 3.55 10^6/uL (4.00-5.40); WHITE BLOOD COUNT 7.9 10^3/uL (4.0-10.0)
[2022-03-31] MEDS ORDERED: PROV10TA PO (16:11)
[2022-03-31] MEDS ORDERED: ATORVASTATIN 20 MG TAB PO SCH (21:00)
== END 2022-03-31 17:10 | disposition home or self-care (01) ==
LOC: M ED 19:30 → M ED INP 19:31 → M OBS 03-31 03:02
PROVIDERS: ADMIT Specialist; ATTEND Specialist
DX: N93.9 Abnormal uterine and vaginal bleeding, unspecified (principal); D25.9 Leiomyoma of uterus, unspecified; Z79.82 Long term (current) use of aspirin; Z79.899 Other long term (current) drug therapy; F17.290 Nicotine dependence, other tobacco product, uncomplicated; I25.10 Atherosclerotic heart disease of native coronary artery without angina pectoris
CPT/HCPCS: 36415; 36430; 76856; 80048; 84702; 85025; 85027; 85610; 85730; 86850; 86900; 86901; 86920; 87631; 93976; 96374; 99284; P9016

== ENCOUNTER → 2022-04-03 | Outpatient (CLI) | payer MEDICAID ==
[~2022-04-03] MED LIST changes: +ATOR80TA59 PO; +BAYE325T13 PO; +ISOS1TAB36 PO; +LORA-674 PO; +PROV10TA PO
== END ==
LOC: M RAD 17:21
PROVIDERS: ATTEND Nurse Practitioner Family
DX: R91.1 Solitary pulmonary nodule (principal); R06.00 Dyspnea, unspecified; Z87.891 Personal history of nicotine dependence

== ENCOUNTER → 2022-04-09 | Outpatient (CLI) | payer OTHER ==
[~2022-04-09] MED LIST changes: +METHACHOLINE KIT (J7674) INH ONE
== END ==
LOC: M CARPUL 07:39
PROVIDERS: ATTEND Nurse Practitioner Family
DX: R06.00 Dyspnea, unspecified (principal)
CPT/HCPCS: 94070; 95070; J7674

== ENCOUNTER 2022-04-10 13:00 | Outpatient (RCR) | payer MEDICAID ==
[~2022-04-10 13:00] MED LIST changes: -METHACHOLINE KIT (J7674) INH ONE
== END 2022-04-11 ==
LOC: M OUTALCOH 13:00
PROVIDERS: ATTEND Psychiatry & Neurology Psychiatry
DX: F15.20 Other stimulant dependence, uncomplicated (principal)

== ENCOUNTER 2022-04-19 12:55 | Outpatient (RCR) | payer MEDICAID ==
[2022-04-25] MEDS ORDERED: FLUT22IN INH (08:54)
[2022-04-25] MEDS ORDERED: LEVAINH INH (08:54)
[2022-04-25] MEDS ORDERED: PROV108A INH (08:54)
== END 2022-05-12 ==
LOC: M OUTALCOH 12:55
PROVIDERS: ATTEND Psychiatry & Neurology Psychiatry
DX: F15.20 Other stimulant dependence, uncomplicated (principal)

== ENCOUNTER → 2022-04-25 | Outpatient (CLI) | payer OTHER ==
[~2022-04-25] MED LIST changes: +FLUT22IN INH; +LEVAINH INH
== END ==
LOC: M LABSMTC 11:46
PROVIDERS: ATTEND Anesthesiology
DX: Z11.52 Encounter for screening for COVID-19 (principal); Z20.822 Contact with and (suspected) exposure to COVID-19

== ENCOUNTER → 2022-05-07 | Outpatient (CLI) | payer OTHER | LOC: M PLAIMG 10:12 | PROVIDERS: ATTEND Nurse Practitioner Family | DX: J45.20 Mild intermittent asthma, uncomplicated (principal) ==

== ENCOUNTER 2022-05-31 13:00 | Outpatient (RCR) | payer MEDICAID ==
[2022-06-05] MEDS ORDERED: IBUP-1022 PO (09:29)
[2022-06-05] MEDS ORDERED: OXYC1TAB23 PO (09:29)
== END 2022-06-12 ==
LOC: M OUTALCOH 13:00
PROVIDERS: ATTEND Psychiatry & Neurology Psychiatry
DX: F15.20 Other stimulant dependence, uncomplicated (principal)

== ENCOUNTER → 2022-06-02 | Outpatient (CLI) | payer OTHER | LOC: M LABSMTC 10:24 | PROVIDERS: ATTEND Anesthesiology | DX: Z01.818 Encounter for other preprocedural examination (principal); Z11.52 Encounter for screening for COVID-19 ==

== ENCOUNTER 2022-06-05 06:18 | Day surgery (SDC) | payer OTHER ==
[~2022-06-05] VITALS: Ht 165.1 cm; Wt 98.2 kg
[~2022-06-05 06:18] MED LIST changes: +LR 1,000 ML IV SCH; +ceFAZolin SOD 2 GM in IV 1 EA IV ONE
[2022-06-05] MEDS ORDERED: LR 1,000 ML IV SCH ×3 (07:10→10:05)
[2022-06-05] MEDS ORDERED: BUPIVACAINE HCL 0.25% 10ML VIAL As Ordered ONE (07:17)
[2022-06-05 07:37] LABS: HEMATOCRIT 37.2 % (36.0-47.0); HEMOGLOBIN 11.7 g/dl (12.0-15.5); MEAN CORPUSCULAR HEMOGLOBIN 27.3 pg (27.0-33.0); MEAN CORPUSCULAR HGB CONC 31.5 g/dl (32.0-36.5); MEAN CORPUSCULAR VOLUME 86.9 fl (80.0-96.0); PLATELET COUNT, AUTOMATED 269 10^3/uL (150-450); RED BLOOD COUNT 4.28 10^6/uL (4.00-5.40); WHITE BLOOD COUNT 7.2 10^3/uL (4.0-10.0)
[2022-06-05] MEDS ORDERED: METOCLOPRAMIDE INJ 10MG/2ML VIAL (J2765 PER 1) As Ordered ONE (08:07)
[2022-06-05] MEDS ORDERED: ACETAMINOPHEN 1000MG 100ML IV BTL (OFIRMEV) (J0131 PER 10MG) As Ordered ONE (08:07)
[2022-06-05] MEDS ORDERED: ONDANSETRON 4MG 2ML VIAL As Ordered ONE (08:07)
[2022-06-05] MEDS ORDERED: SUGAMMADEX SODIUM 500 MG/5 ML VIAL (BRIDION) As Ordered ONE (08:07)
[2022-06-05] MEDS ORDERED: propofoL 200 MG/20 ML VIAL As Ordered ONE (08:07)
[2022-06-05] MEDS ORDERED: dexameTHASONE 4 MG/ML 1ML VIAL (J1100 PER 1MG) As Ordered ONE (08:07)
[2022-06-05] MEDS ORDERED: fentaNYL 250 MCG/5 ML INJECTION As Ordered ONE (08:07)
[2022-06-05] MEDS ORDERED: KETOROLAC 60MG 2ML VIAL As Ordered ONE (08:07)
[2022-06-05] MEDS ORDERED: ROCURONIUM BROMIDE 50 MG/5 ML VIAL As Ordered ONE ×2 (08:07→08:21)
[2022-06-05] MEDS ORDERED: LIDOCAINE 2% 100MG/5ML SDV (FOR ANES.) As Ordered ONE (08:07)
[2022-06-05] MEDS ORDERED: MIDAZOLAM INJ 2MG/2ML VIAL (J2250 PER 1MG) As Ordered ONE (08:07)
[2022-06-05] MEDS ORDERED: HYDROmorphone HCL 2MG/ML 1ML VIAL As Ordered ONE (08:25)
[2022-06-05] MEDS ORDERED: IBUP-1022 PO (09:29)
[2022-06-05] MEDS ORDERED: OXYC1TAB23 PO (09:29)
[2022-06-05] MEDS ORDERED: PERCOCET 5MG/325MG TAB PO PRN (10:00)
[2022-06-05] MEDS ORDERED: ONDANSETRON 4MG 2ML VIAL IV PRN ×2 (10:00→10:05)
[2022-06-05] MEDS ORDERED: KETOROLAC 30 MG/ML 1ML VIAL IV PRN (10:00)
[2022-06-05] MEDS ORDERED: oxyCODONE 5MG TAB PO PRN (10:05)
[2022-06-05] MEDS ORDERED: MORPHINE 2 MG/ML 1ML VIAL IV PRN (10:05)
[2022-06-05] MEDS ORDERED: fentaNYL 100 MCG/2 ML INJECTION IV PRN (10:05)
[2022-06-05 11:40] VITALS: BP 132/65
[2022-06-05] MEDS ORDERED: DOCUSATE SODIUM 100MG CAPSULE PO SCH (21:00)
== END 2022-06-05 11:47 | disposition home or self-care (01) ==
LOC: M SDC 06:18
PROVIDERS: ATTEND Specialist
DX: D25.2 Subserosal leiomyoma of uterus (principal); I25.10 Atherosclerotic heart disease of native coronary artery without angina pectoris; Z95.1 Presence of aortocoronary bypass graft; I10 Essential (primary) hypertension; E78.2 Mixed hyperlipidemia; F41.9 Anxiety disorder, unspecified; F32.A Depression, unspecified; F43.10 Post-traumatic stress disorder, unspecified; F19.11 Other psychoactive substance abuse, in remission; F17.290 Nicotine dependence, other tobacco product, uncomplicated; Z79.899 Other long term (current) drug therapy; Z79.82 Long term (current) use of aspirin; Z79.51 Long term (current) use of inhaled steroids
CPT/HCPCS: 36415; 58573; 85027; 86850; 86900; 86901; 88307; J0131; J0690; J1100; J1170; J1885; J2250; J2405; J2765; J3010; S2900

== ENCOUNTER 2022-07-11 13:00 | Outpatient (RCR) | payer MEDICAID ==
[~2022-07-11 13:00] MED LIST changes: +ALBU6.7H6 INH; +IBUP-1022 PO; -LR 1,000 ML IV SCH; -PROV108A INH; -ceFAZolin SOD 2 GM in IV 1 EA IV ONE
== END 2022-07-12 ==
LOC: M OUTALCOH 13:00
PROVIDERS: ATTEND Psychiatry & Neurology Psychiatry
DX: F15.20 Other stimulant dependence, uncomplicated (principal)

== ENCOUNTER → 2022-11-15 | Outpatient (REF) | payer OTHER ==
[2022-11-15 16:43] LABS: BASO # 0.1 10^3/uL (0.0-0.2); EOS # 0.2 10^3/uL (0.0-0.5); EOS % 3.2 % (0.0-3.0); HEMATOCRIT 44.3 % (36.0-47.0); HEMOGLOBIN 13.7 g/dl (12.0-15.5); LYMPH # 3.4 10^3/uL (1.5-5.0); LYMPH % 46.9 % (24.0-44.0); MEAN CORPUSCULAR HEMOGLOBIN 27.1 pg (27.0-33.0); MEAN CORPUSCULAR HGB CONC 30.9 g/dl (32.0-36.5); MEAN CORPUSCULAR VOLUME 87.5 fl (80.0-96.0); MONO # 0.4 10^3/uL (0.0-0.8); MONO % 5.7 % (2.0-8.0); NEUTROPHILS # 3.1 10^3/uL (1.5-8.5); NEUTROPHILS % 42.8 % (36.0-66.0); PLATELET COUNT, AUTOMATED 262 10^3/uL (150-450); RED BLOOD COUNT 5.06 10^6/uL (4.00-5.40); WHITE BLOOD COUNT 7.2 10^3/uL (4.0-10.0)
[2022-11-15 17:15] LABS: ALBUMIN 4.2 G/DL (3.2-5.2); ALKALINE PHOSPHATASE 84 U/L (46-116); ALT/SGPT 61 U/L (7.0-40); AST/SGOT 48 U/L (<34); BILIRUBIN,TOTAL 0.8 MG/DL (0.3-1.2); BLOOD UREA NITROGEN 19 MG/DL (9-23); CALCIUM LEVEL 9.5 MG/DL (8.5-10.1); CARBON DIOXIDE LEVEL 28 MMOL/L (20-31); CHLORIDE LEVEL 102 MMOL/L (98-107); CHOLESTEROL LEVEL 114 MG/DL (<200); CHOLESTEROL RISK RATIO 4.19 (<5); CREATININE FOR GFR 0.87 MG/DL (0.55-1.30); GLOMERULAR FILTRATION RATE > 60.0 (>58); GLUCOSE, FASTING 98 MG/DL (60-100); HDL CHOLESTEROL 27.2 MG/DL (>40); NON-HDL-C 87 MG/DL; POTASSIUM SERUM 4.6 MMOL/L (3.5-5.1); SODIUM LEVEL 140 MMOL/L (136-145); TOTAL PROTEIN 7.7 G/DL (5.7-8.2); TRIGLYCERIDES LEVEL 159 MG/DL (<150)
[2022-11-15 17:49] LABS: HEMOGLOBIN A1c 5.8 % (4.0-6.0)
== END ==
LOC: M LAB REF 16:13
PROVIDERS: ATTEND Nurse Practitioner Family
DX: E66.9 Obesity, unspecified (principal)

== ENCOUNTER → 2022-12-03 | Outpatient (CLI) | payer OTHER ==
[~2022-12-03] MED LIST changes: +PROHANCE 279.3MG/ML 15ML VIAL ONE; +PROHANCE 279.3MG/ML 5ML VIAL ONE
== END ==
LOC: M PLAIMG 10:54
PROVIDERS: ATTEND Nurse Practitioner Women's Health
DX: R92.2 Inconclusive mammogram (principal); Z91.89 Other specified personal risk factors, not elsewhere classified; Z80.3 Family history of malignant neoplasm of breast
CPT/HCPCS: 77049; A9576

== ENCOUNTER → 2023-01-10 | Outpatient (CLI) | payer OTHER ==
[~2023-01-10] MED LIST changes: -PROHANCE 279.3MG/ML 15ML VIAL ONE; -PROHANCE 279.3MG/ML 5ML VIAL ONE
[2023-01-10 11:54] LABS: HEMOGLOBIN A1c 6.4 % (4.0-6.0)
[2023-01-10 12:07] LABS: RHEUMATOID FACTOR QUANT < 3.5 IU/ML (<14)
[2023-01-10 12:09] LABS: FOLATE > 24.0 NG/ML (>5.4); VITAMIN B12 LEVEL 532 PG/ML (211-911)
[2023-01-10 12:10] LABS: TOTAL 25(OH) VITAMIN D 31.5 NG/ML (20.0-100.0)
== END ==
LOC: M LAB 10:27
PROVIDERS: ATTEND Psychiatry & Neurology Neurology
DX: R51.9 Headache, unspecified (principal)

== ENCOUNTER → 2023-01-21 | Outpatient (CLI) | payer OTHER | LOC: M WHC 11:09 | PROVIDERS: ATTEND Nurse Practitioner Women's Health | DX: Z12.31 Encounter for screening mammogram for malignant neoplasm of breast (principal); Z91.89 Other specified personal risk factors, not elsewhere classified; Z80.3 Family history of malignant neoplasm of breast ==

== ENCOUNTER → 2023-06-04 | Outpatient (REF) | payer OTHER ==
[~2023-06-04] MED LIST changes: -LOSA100T45 PO; +LOSA100T46 PO
[2023-06-04 17:37] LABS: BASO # 0.1 10^3/uL (0.0-0.2); BASO % 0.9 % (0.0-1.0); EOS # 0.2 10^3/uL (0.0-0.5); EOS % 2.2 % (0.0-3.0); HEMATOCRIT 41.4 % (36.0-47.0); HEMOGLOBIN 13.5 g/dl (12.0-15.5); LYMPH # 4.6 10^3/uL (1.5-5.0); LYMPH % 50.5 % (24.0-44.0); MEAN CORPUSCULAR HEMOGLOBIN 28.8 pg (27.0-33.0); MEAN CORPUSCULAR HGB CONC 32.6 g/dl (32.0-36.5); MEAN CORPUSCULAR VOLUME 88.3 fl (80.0-96.0); MONO # 0.5 10^3/uL (0.0-0.8); MONO % 5.3 % (2.0-8.0); NEUTROPHILS # 3.7 10^3/uL (1.5-8.5); NEUTROPHILS % 40.4 % (36.0-66.0); PLATELET COUNT, AUTOMATED 271 10^3/uL (150-450); RED BLOOD COUNT 4.69 10^6/uL (4.00-5.40); WHITE BLOOD COUNT 9.2 10^3/uL (4.0-10.0)
[2023-06-04 17:47] LABS: ALBUMIN 4.3 G/DL (3.2-5.2); ALKALINE PHOSPHATASE 94 U/L (46-116); ALT/SGPT 56 U/L (7.0-40); AST/SGOT 28 U/L (<34); BILIRUBIN,TOTAL 0.3 MG/DL (0.3-1.2); BLOOD UREA NITROGEN 18 MG/DL (9-23); CALCIUM LEVEL 9.8 MG/DL (8.5-10.1); CARBON DIOXIDE LEVEL 24 MMOL/L (20-31); CHLORIDE LEVEL 106 MMOL/L (98-107); CHOLESTEROL LEVEL 154 MG/DL (<200); CHOLESTEROL RISK RATIO 4.68 (<5); CREATININE FOR GFR 0.88 MG/DL (0.55-1.30); GLOMERULAR FILTRATION RATE > 60.0 (>58); GLUCOSE, FASTING 118 MG/DL (60-100); HDL CHOLESTEROL 32.9 MG/DL (>40); LDL CHOLESTEROL 89.5 MG/DL (<100); NON-HDL-C 121.1 MG/DL; POTASSIUM SERUM 4.5 MMOL/L (3.5-5.1); SODIUM LEVEL 143 MMOL/L (136-145); THYROID STIMULATING HORMONE 2.973 uIU/ML (0.55-4.78); TOTAL PROTEIN 7.4 G/DL (5.7-8.2); TRIGLYCERIDES LEVEL 158 MG/DL (<150)
[2023-06-04 17:58] LABS: HEMOGLOBIN A1c 6.1 % (4.0-6.0)
== END ==
LOC: M LAB REF 16:37
PROVIDERS: ATTEND Nurse Practitioner Family
DX: Z13.228 Encounter for screening for other metabolic disorders (principal)

== ENCOUNTER → 2023-06-20 | Outpatient (CLI) | payer OTHER ==
[~2023-06-20] MED LIST changes: +LORA-1041 PO; -LORA-674 PO
== END ==
LOC: M PLAIMG 10:31
PROVIDERS: ATTEND Nurse Practitioner Family
DX: J45.20 Mild intermittent asthma, uncomplicated (principal); K76.0 Fatty (change of) liver, not elsewhere classified

== ENCOUNTER → 2023-08-04 | Outpatient (CLI) | payer OTHER | LOC: M PLALAB 15:36 | PROVIDERS: ATTEND Specialist | DX: L68.0 Hirsutism (principal) ==

== ENCOUNTER → 2023-12-19 | Outpatient (REF) | payer OTHER ==
[2023-12-19 12:06] LABS: ALBUMIN 3.7 G/DL (3.2-5.2); ALKALINE PHOSPHATASE 110 U/L (46-116); ALT/SGPT 46 U/L (7.0-40); AST/SGOT 25 U/L (<34); BILIRUBIN,TOTAL 0.2 MG/DL (0.3-1.2); BLOOD UREA NITROGEN 22 MG/DL (9-23); CALCIUM LEVEL 8.4 MG/DL (8.5-10.1); CARBON DIOXIDE LEVEL 22 MMOL/L (20-31); CHLORIDE LEVEL 112 MMOL/L (98-107); CREATININE FOR GFR 0.81 MG/DL (0.55-1.30); GLOMERULAR FILTRATION RATE > 60.0 (>58); GLUCOSE, FASTING 144 MG/DL (60-100); POTASSIUM SERUM 4.3 MMOL/L (3.5-5.1); SODIUM LEVEL 141 MMOL/L (136-145); TOTAL PROTEIN 6.8 G/DL (5.7-8.2)
[2023-12-19 12:47] LABS: HEMOGLOBIN A1c 6.7 % (4.0-6.0)
== END ==
LOC: M LAB REF 11:14
PROVIDERS: ATTEND Nurse Practitioner Family
DX: R73.03 Prediabetes (principal); R74.8 Abnormal levels of other serum enzymes

== ENCOUNTER → 2024-01-29 | Outpatient (CLI) | payer OTHER ==
[~2024-01-29] MED LIST changes: -MIRT-60 PO; +MIRT-89 PO
== END ==
LOC: M WHC 14:09
PROVIDERS: ATTEND Nurse Practitioner Women's Health
DX: Z12.31 Encounter for screening mammogram for malignant neoplasm of breast (principal)

== ENCOUNTER → 2024-03-24 | Outpatient (REF) | payer OTHER ==
[~2024-03-24] MED LIST changes: +FLUO-290 PO; -FLUO10CA18 PO
[2024-03-24 14:08] LABS: ALBUMIN 3.9 G/DL (3.2-5.2); ALKALINE PHOSPHATASE 92 U/L (46-116); ALT/SGPT 47 U/L (7.0-40); AST/SGOT 25 U/L (<34); BILIRUBIN,TOTAL 0.4 MG/DL (0.3-1.2); BLOOD UREA NITROGEN 23 MG/DL (9-23); CALCIUM LEVEL 9.5 MG/DL (8.5-10.1); CARBON DIOXIDE LEVEL 28 MMOL/L (20-31); CHLORIDE LEVEL 108 MMOL/L (98-107); CHOLESTEROL LEVEL 127 MG/DL (<200); CHOLESTEROL RISK RATIO 4.15 (<5); CREATININE FOR GFR 0.94 MG/DL (0.55-1.30); GLOMERULAR FILTRATION RATE > 60.0 (>58); GLUCOSE, FASTING 116 MG/DL (60-100); HDL CHOLESTEROL 30.6 MG/DL (>40); NON-HDL-C 96.4 MG/DL; POTASSIUM SERUM 4.4 MMOL/L (3.5-5.1); SODIUM LEVEL 142 MMOL/L (136-145); TOTAL PROTEIN 7.1 G/DL (5.7-8.2); TRIGLYCERIDES LEVEL 97 MG/DL (<150)
== END ==
LOC: M LAB REF 12:14
PROVIDERS: ATTEND Nurse Practitioner Family
DX: R73.03 Prediabetes (principal); E78.5 Hyperlipidemia, unspecified

== ENCOUNTER → 2024-04-26 | Outpatient (CLI) | payer OTHER ==
[2024-04-26 18:40] LABS: BASO # 0.1 10^3/uL (0.0-0.2); BASO % 0.7 % (0.0-1.0); EOS # 0.2 10^3/uL (0.0-0.5); EOS % 2.1 % (0.0-3.0); HEMATOCRIT 42.3 % (36.0-47.0); HEMOGLOBIN 12.9 g/dl (12.0-15.5); LYMPH # 4.6 10^3/uL (1.5-5.0); LYMPH % 48.4 % (24.0-44.0); MEAN CORPUSCULAR HEMOGLOBIN 27.4 pg (27.0-33.0); MEAN CORPUSCULAR HGB CONC 30.5 g/dl (32.0-36.5); MONO # 0.6 10^3/uL (0.0-0.8); MONO % 6.3 % (2.0-8.0); NEUTROPHILS % 41.9 % (36.0-66.0); PLATELET COUNT, AUTOMATED 262 10^3/uL (150-450); WHITE BLOOD COUNT 9.6 10^3/uL (4.0-10.0)
[2024-04-26 18:43] LABS: ALKALINE PHOSPHATASE 92 U/L (46-116); ALT/SGPT 40 U/L (7.0-40); AST/SGOT 19 U/L (<34); BILIRUBIN,TOTAL 0.4 MG/DL (0.3-1.2); BLOOD UREA NITROGEN 21 MG/DL (9-23); CALCIUM LEVEL 9.4 MG/DL (8.5-10.1); CARBON DIOXIDE LEVEL 27 MMOL/L (20-31); CHLORIDE LEVEL 109 MMOL/L (98-107); CREATININE FOR GFR 0.97 MG/DL (0.55-1.30); GLOMERULAR FILTRATION RATE > 60.0 (>58); GLUCOSE, FASTING 93 MG/DL (60-100); POTASSIUM SERUM 4.4 MMOL/L (3.5-5.1); SODIUM LEVEL 142 MMOL/L (136-145); TOTAL PROTEIN 6.9 G/DL (5.7-8.2)
== END ==
LOC: M WUC 11:38
PROVIDERS: ATTEND Psychiatry & Neurology Neurology
DX: R51.9 Headache, unspecified (principal)

== ENCOUNTER → 2024-05-04 | Outpatient (CLI) | payer OTHER ==
[~2024-05-04] MED LIST changes: +PROHANCE 279.3MG/ML 15ML VIAL IV ONE; +PROHANCE 279.3MG/ML 5ML VIAL IV ONE
== END ==
LOC: M PLAIMG 12:26
PROVIDERS: ATTEND Nurse Practitioner Women's Health
DX: Z12.39 Encounter for other screening for malignant neoplasm of breast (principal); Z91.89 Other specified personal risk factors, not elsewhere classified; Z80.3 Family history of malignant neoplasm of breast
CPT/HCPCS: 77049; A9576

== ENCOUNTER → 2024-07-21 | Outpatient (REF) ==
[~2024-07-21] MED LIST changes: -PROHANCE 279.3MG/ML 15ML VIAL IV ONE; -PROHANCE 279.3MG/ML 5ML VIAL IV ONE
== END ==
LOC: M RAD 15:10
PROVIDERS: ATTEND Internal Medicine
DX: M25.774 Osteophyte, right foot (principal); M50.30 Other cervical disc degeneration, unspecified cervical region

== ENCOUNTER → 2024-08-26 | Outpatient (REF) | payer OTHER ==
[~2024-08-26] MED LIST changes: +LEVA15HF2 INH; -LEVAINH INH
== END ==
LOC: M SFHCDERM 17:49
PROVIDERS: ATTEND Nurse Practitioner Family
DX: D48.5 Neoplasm of uncertain behavior of skin (principal)

== ENCOUNTER → 2024-12-16 | Outpatient (REF) | payer OTHER ==
[2024-12-16 19:11] LABS: BASO # 0.1 10^3/uL (0.0-0.2); BASO % 0.5 % (0.0-1.0); EOS # 0.3 10^3/uL (0.0-0.5); EOS % 2.7 % (0.0-3.0); HEMATOCRIT 40.4 % (36.0-47.0); HEMOGLOBIN 13.2 g/dl (12.0-15.5); LYMPH % 41.5 % (24.0-44.0); MEAN CORPUSCULAR HEMOGLOBIN 27.6 pg (27.0-33.0); MEAN CORPUSCULAR HGB CONC 32.7 g/dl (32.0-36.5); MEAN CORPUSCULAR VOLUME 84.3 fl (80.0-96.0); MONO # 0.4 10^3/uL (0.0-0.8); MONO % 4.5 % (2.0-8.0); NEUTROPHILS # 4.9 10^3/uL (1.5-8.5); NEUTROPHILS % 50.5 % (36.0-66.0); PLATELET COUNT, AUTOMATED 258 10^3/uL (150-450); RED BLOOD COUNT 4.79 10^6/uL (4.00-5.40); WHITE BLOOD COUNT 9.6 10^3/uL (4.0-10.0)
[2024-12-16 19:13] LABS: ALBUMIN 3.9 G/DL (3.2-5.2); ALKALINE PHOSPHATASE 99 U/L (35-104); ALT/SGPT 28 U/L (7.0-40); AST/SGOT 22 U/L (<34); BILIRUBIN,TOTAL 0.3 MG/DL (0.3-1.2); BLOOD UREA NITROGEN 20 MG/DL (9-23); CALCIUM LEVEL 9.3 MG/DL (8.5-10.1); CARBON DIOXIDE LEVEL 24 MMOL/L (20-31); CHLORIDE LEVEL 108 MMOL/L (98-107); CHOLESTEROL LEVEL 151 MG/DL (<200); CHOLESTEROL RISK RATIO 5.33 (<5); CREATININE FOR GFR 0.85 MG/DL (0.55-1.30); GLOMERULAR FILTRATION RATE > 60.0 (>58); GLUCOSE, FASTING 106 MG/DL (60-100); HDL CHOLESTEROL 28.3 MG/DL (>40); LDL CHOLESTEROL 64.9 MG/DL (<100); MAGNESIUM LEVEL 1.9 MG/DL (1.8-2.4); NON-HDL-C 122.7 MG/DL; POTASSIUM SERUM 3.9 MMOL/L (3.5-5.1); SODIUM LEVEL 145 MMOL/L (136-145); TOTAL PROTEIN 7.1 G/DL (5.7-8.2); TRIGLYCERIDES LEVEL 289 MG/DL (<150)
[2024-12-16 19:15] LABS: THYROID STIMULATING HORMONE 2.488 uIU/ML (0.55-4.78)
[2024-12-16 19:23] LABS: HEMOGLOBIN A1c 5.5 % (4.0-6.0)
== END ==
LOC: M LAB REF 17:24
PROVIDERS: ATTEND Nurse Practitioner Family
DX: E11.9 Type 2 diabetes mellitus without complications (principal); E66.9 Obesity, unspecified

== ENCOUNTER → 2025-01-14 | Outpatient (CLI) | payer OTHER | LOC: M RAD 09:36 | PROVIDERS: ATTEND Physician Assistant | DX: M47.892 Other spondylosis, cervical region (principal); M50.221 Other cervical disc displacement at C4-C5 level; M50.222 Other cervical disc displacement at C5-C6 level; M50.223 Other cervical disc displacement at C6-C7 level; M48.02 Spinal stenosis, cervical region; E04.1 Nontoxic single thyroid nodule ==

== ENCOUNTER → 2025-02-07 | Outpatient (REF) | payer OTHER ==
[~2025-02-07] MED LIST changes: +ISOS-18 PO; -ISOS30TAB PO
== END ==
LOC: M LAB REF 12:18
PROVIDERS: ATTEND Podiatrist
DX: L03.032 Cellulitis of left toe (principal)

== ENCOUNTER → 2025-02-09 | Outpatient (CLI) | payer OTHER ==
[2025-02-09 18:21] LABS: BASO # 0.1 10^3/uL (0.0-0.2); BASO % 0.7 % (0.0-1.0); EOS # 0.3 10^3/uL (0.0-0.5); EOS % 2.9 % (0.0-3.0); HEMATOCRIT 41.2 % (36.0-47.0); HEMOGLOBIN 12.8 g/dl (12.0-15.5); LYMPH # 3.7 10^3/uL (1.5-5.0); LYMPH % 42.8 % (24.0-44.0); MEAN CORPUSCULAR HEMOGLOBIN 27.1 pg (27.0-33.0); MEAN CORPUSCULAR HGB CONC 31.1 g/dl (32.0-36.5); MEAN CORPUSCULAR VOLUME 87.1 fl (80.0-96.0); MONO # 0.4 10^3/uL (0.0-0.8); MONO % 5.1 % (2.0-8.0); NEUTROPHILS # 4.2 10^3/uL (1.5-8.5); NEUTROPHILS % 48.2 % (36.0-66.0); PLATELET COUNT, AUTOMATED 273 10^3/uL (150-450); RED BLOOD COUNT 4.73 10^6/uL (4.00-5.40); WHITE BLOOD COUNT 8.7 10^3/uL (4.0-10.0)
[2025-02-09 18:27] LABS: ALBUMIN 3.9 G/DL (3.2-5.2); BILIRUBIN,TOTAL 0.5 MG/DL (0.3-1.2); CALCIUM LEVEL 9.1 MG/DL (8.5-10.1); CHOLESTEROL RISK RATIO 4.5 (<5); CREATININE FOR GFR 0.87 MG/DL (0.55-1.30); GLOMERULAR FILTRATION RATE 82.1 (>58); HDL CHOLESTEROL 27.3 MG/DL (>40); LDL CHOLESTEROL 65.1 MG/DL (<100); MAGNESIUM LEVEL 1.9 MG/DL (1.8-2.4); NON-HDL-C 95.7 MG/DL; POTASSIUM SERUM 3.7 MMOL/L (3.5-5.1); TOTAL PROTEIN 6.9 G/DL (5.7-8.2)
[2025-02-09 18:28] LABS: THYROID STIMULATING HORMONE 2.06 uIU/ML (0.55-4.78)
[2025-02-09 19:16] LABS: HEMOGLOBIN A1c 5.5 % (4.0-6.0)
== END ==
LOC: M WUC 14:23
PROVIDERS: ATTEND Nurse Practitioner Family
DX: E78.5 Hyperlipidemia, unspecified (principal); E11.9 Type 2 diabetes mellitus without complications; R60.0 Localized edema; E66.9 Obesity, unspecified

== ENCOUNTER → 2025-02-10 | Outpatient (REF) | payer OTHER ==
[2025-02-10 15:00] LABS: C REACTIVE PROTEIN QUANTITATIV 0.91 MG/DL (<1.0)
[2025-02-10 15:01] LABS: ALBUMIN 3.8 G/DL (3.2-5.2); BILIRUBIN,TOTAL 0.4 MG/DL (0.3-1.2); CALCIUM LEVEL 9.2 MG/DL (8.5-10.1); CHOLESTEROL RISK RATIO 4.61 (<5); CREATININE FOR GFR 0.95 MG/DL (0.55-1.30); GLOMERULAR FILTRATION RATE 73.9 (>58); HDL CHOLESTEROL 27.5 MG/DL (>40); LDL CHOLESTEROL 66.7 MG/DL (<100); NON-HDL-C 99.5 MG/DL; POTASSIUM SERUM 3.8 MMOL/L (3.5-5.1); RHEUMATOID FACTOR QUANT 3.7 IU/ML (<14); TOTAL PROTEIN 6.9 G/DL (5.7-8.2)
[2025-02-10 15:40] LABS: HEMOGLOBIN A1c 5.7 % (4.0-6.0)
== END ==
LOC: M LAB REF 12:17
PROVIDERS: ATTEND Nurse Practitioner Family
DX: M79.672 Pain in left foot (principal); M79.671 Pain in right foot; E11.9 Type 2 diabetes mellitus without complications; E78.5 Hyperlipidemia, unspecified

== ENCOUNTER 2025-02-20 13:10 | Observation (INO) | payer OTHER ==
[~2025-02-20] VITALS: Ht 162.6 cm; Wt 101.0 kg
[2025-02-20] MEDS: NS (Normal Saline) 0.9% 1,000 ML IV ONE (13:50)
[2025-02-20] MEDS ORDERED: ISOVUE-370 76% 100ML VIAL As Ordered ONE (13:52)
[2025-02-20] MEDS: MORPHINE 2 MG/ML 1ML VIAL IV PRN (13:54)
[2025-02-20 13:57] LABS: BASO % 0.3 % (0.0-1.0); EOS # 0.3 10^3/uL (0.0-0.5); HEMATOCRIT 43.9 % (36.0-47.0); LYMPH # 4.3 10^3/uL (1.5-5.0); LYMPH % 39.3 % (24.0-44.0); MEAN CORPUSCULAR HEMOGLOBIN 27.9 pg (27.0-33.0); MEAN CORPUSCULAR HGB CONC 31.9 g/dl (32.0-36.5); MEAN CORPUSCULAR VOLUME 87.5 fl (80.0-96.0); MONO # 0.6 10^3/uL (0.0-0.8); NEUTROPHILS # 5.7 10^3/uL (1.5-8.5); NEUTROPHILS % 52.2 % (36.0-66.0); PLATELET COUNT, AUTOMATED 264 10^3/uL (150-450); RED BLOOD COUNT 5.02 10^6/uL (4.00-5.40); WHITE BLOOD COUNT 10.9 10^3/uL (4.0-10.0)
[2025-02-20 14:20] LABS: LIPASE 27 U/L (12-53)
[2025-02-20 14:22] LABS: ALBUMIN 3.9 G/DL (3.2-5.2); ALKALINE PHOSPHATASE 90 U/L (35-104); ALT/SGPT 30 U/L (7.0-40); AST/SGOT 31 U/L (<34); BILIRUBIN,DIRECT 0.3 MG/DL (<0.4); BILIRUBIN,TOTAL 1.2 MG/DL (0.3-1.2); BLOOD UREA NITROGEN 22 MG/DL (9-23); CALCIUM LEVEL 8.8 MG/DL (8.5-10.1); CARBON DIOXIDE LEVEL 23 MMOL/L (20-31); CHLORIDE LEVEL 109 MMOL/L (98-107); CREATININE FOR GFR 0.77 MG/DL (0.55-1.30); GLOMERULAR FILTRATION RATE > 90.0 (>58); GLUCOSE, FASTING 100 MG/DL (60-100); POTASSIUM SERUM 4.6 MMOL/L (3.5-5.1); SODIUM LEVEL 142 MMOL/L (136-145); TOTAL PROTEIN 7.4 G/DL (5.7-8.2)
[2025-02-20 14:26] LABS: CPK CREATINE PHOSPHOKINASE 60 U/L (34-145); MB/CK RELATIVE INDEX 1.66 (< OR =4)
[2025-02-20 15:51] LABS: CK-MB VALUE MASS < 1.0 NG/ML (<3.6)
[2025-02-20 15:56] LABS: CPK CREATINE PHOSPHOKINASE 48 U/L (34-145); MB/CK RELATIVE INDEX 2.08 (< OR =4)
[2025-02-20] MEDS ORDERED: FLUTISP NARES (18:24)
[2025-02-20] MEDS ORDERED: CETI-24 PO (18:24)
[2025-02-20] MEDS ORDERED: NITR0.4S14 SL (18:25)
[2025-02-20] MEDS ORDERED: SEMA0.257 SQ (18:26)
[2025-02-20] MEDS ORDERED: VITA500T9 PO (18:27)
[2025-02-20] MEDS ORDERED: MAGN500T2 PO (18:28)
[2025-02-20] MEDS ORDERED: METF500T13 PO (18:29)
[2025-02-20] MEDS ORDERED: OMEP-173 PO (18:30)
[2025-02-20] MEDS ORDERED: FLUT12AE2 INH (18:30)
[2025-02-20] MEDS ORDERED: AMIT25TA19 PO (18:31)
[2025-02-20] MEDS ORDERED: ELIQ5TAB PO (18:32)
[2025-02-20] MEDS ORDERED: TOPI-14 PO (18:32)
[2025-02-20] MEDS ORDERED: HOME MED LIST COMPLETE! XX SCH (18:35)
[2025-02-20] MEDS: METOCLOPRAMIDE INJ 10MG/2ML VIAL IV ONE (19:31)
[2025-02-20] MEDS: PIPERACILLIN/TAZOBACTAM SOD 3.375 GM in DEXTROSE 5% (D5W) ADV/MINI-BAG 50 ML IV SCH (19:32)
[2025-02-20] MEDS: PANTOPRAZOLE 40MG VIAL IV ONE (19:32)
[2025-02-20 20:18] LABS: KETONE, URINE AUTO RFX NEGATIVE (NEGATIVE); LEUKOCYTE ESTERASE UR AUTO RFX NEGATIVE (NEGATIVE); MUCUS, URINE RFX SMALL (NEGATIVE); NITRITE, URINE AUTO RFX NEGATIVE (NEGATIVE); RBC, URINE AUTO RFX 0 /HPF (0-3); SQUAM EPITHELIAL CELL UR AURFX 2 /HPF (0-6); WBC, URINE AUTO RFX 2 /HPF (0-3)
[2025-02-20 20:23] VITALS: BP 139/83; TEMP 97.3; O2SAT 98
[2025-02-20] MEDS ORDERED: METOCLOPRAMIDE INJ 10MG/2ML VIAL IV PRN (22:00)
[2025-02-20] MEDS: D5W/0.9% SODIUM CHLORIDE 1,000 ML IV SCH (22:08)
[2025-02-20] MEDS: ENOXAPARIN 100MG/1ML SYRINGE (J1650 PER 10MG) SC SCH (22:09)
[2025-02-21 04:09] VITALS: BP 123/78; TEMP 97.3; O2SAT 97
[2025-02-21 05:59] LABS: HEMATOCRIT 42.7 % (36.0-47.0); HEMOGLOBIN 13.4 g/dl (12.0-15.5); MEAN CORPUSCULAR HEMOGLOBIN 27.1 pg (27.0-33.0); MEAN CORPUSCULAR HGB CONC 31.4 g/dl (32.0-36.5); MEAN CORPUSCULAR VOLUME 86.3 fl (80.0-96.0); PLATELET COUNT, AUTOMATED 240 10^3/uL (150-450); RED BLOOD COUNT 4.95 10^6/uL (4.00-5.40); WHITE BLOOD COUNT 7.6 10^3/uL (4.0-10.0)
[2025-02-21 06:30] LABS: PROCALCITONIN 0.16 ng/ml
[2025-02-21 06:31] LABS: ALBUMIN 3.5 G/DL (3.2-5.2); BILIRUBIN,TOTAL 1.2 MG/DL (0.3-1.2); CALCIUM LEVEL 8.8 MG/DL (8.5-10.1); CREATININE FOR GFR 0.9 MG/DL (0.55-1.30); GLOMERULAR FILTRATION RATE 78.9 (>58); MAGNESIUM LEVEL 1.8 MG/DL (1.8-2.4); TOTAL PROTEIN 6.6 G/DL (5.7-8.2)
[2025-02-21] MEDS ORDERED: MAALOX 30 ML SUSP *UDC PO PRN (11:25)
[2025-02-21] MEDS ORDERED: MORPHINE 2 MG/ML 1ML VIAL IV PRN (11:25)
[2025-02-21 12:00] VITALS: BP 124/69; TEMP 97.5; O2SAT 95
[2025-02-21] MEDS: PANTOPRAZOLE 40MG VIAL IV SCH (13:02)
[2025-02-21] MEDS ORDERED: PANT40TA29 PO (18:56)
[2025-02-21] MEDS ORDERED: REGL5TAB2 PO (18:56)
== END 2025-02-21 19:45 | disposition home or self-care (01) ==
LOC: M ED 13:10 → EDBD 13:10 → M ED INP 13:11 → M MS5PR 20:22
PROVIDERS: ADMIT Student in an Organized Health Care Education/Training Program; ATTEND Student in an Organized Health Care Education/Training Program
DX: R11.2 Nausea with vomiting, unspecified (principal); R19.7 Diarrhea, unspecified; R10.10 Upper abdominal pain, unspecified; R00.0 Tachycardia, unspecified; Z79.85 Long-term (current) use of injectable non-insulin antidiabetic drugs; I48.91 Unspecified atrial fibrillation; I25.10 Atherosclerotic heart disease of native coronary artery without angina pectoris; Z95.1 Presence of aortocoronary bypass graft; I10 Essential (primary) hypertension; F32.A Depression, unspecified; F41.9 Anxiety disorder, unspecified; F43.10 Post-traumatic stress disorder, unspecified; G62.9 Polyneuropathy, unspecified; Z98.891 History of uterine scar from previous surgery; Z98.890 Other specified postprocedural states; Z82.49 Family history of ischemic heart disease and other diseases of the circulatory system; F17.290 Nicotine dependence, other tobacco product, uncomplicated; Z79.899 Other long term (current) drug therapy; Z79.01 Long term (current) use of anticoagulants; Z79.84 Long term (current) use of oral hypoglycemic drugs
CPT/HCPCS: 36415; 71045; 71275; 74018; 74177; 80047; 80048; 80053; 80076; 81001; 82550; 82553; 83605; 83690; 83735; 84145; 84484; 85025; 85027; 93005; 93041; 96372; 96374; 96375; 96376; 99285; J1650; J2470; J2543; J2765; Q9967

== ENCOUNTER → 2025-02-24 | Outpatient (REF) | payer OTHER ==
[~2025-02-24] MED LIST changes: +AMIT25TA19 PO; +CETI-24 PO; +ELIQ5TAB PO; +FLUT12AE2 INH; +FLUTISP NARES; +MAGN500T2 PO; +METF500T13 PO; +NITR0.4S14 SL; +OMEP-173 PO; +PANT40TA29 PO; +REGL5TAB2 PO; +SEMA0.257 SQ; +TOPI-14 PO; +VITA500T9 PO
== END ==
LOC: M LAB REF 13:35
PROVIDERS: ATTEND Nurse Practitioner Family
DX: K52.9 Noninfective gastroenteritis and colitis, unspecified (principal)

== ENCOUNTER → 2025-06-23 | Outpatient (CLI) | payer OTHER ==
[~2025-06-23] MED LIST changes: -IBUP-1022 PO; +IBUP600T42 PO
== END ==
LOC: M PLAIMG 11:18
PROVIDERS: ATTEND Student in an Organized Health Care Education/Training Program
DX: M79.672 Pain in left foot (principal); M79.671 Pain in right foot; M77.32 Calcaneal spur, left foot; M25.472 Effusion, left ankle; M77.8 Other enthesopathies, not elsewhere classified; M79.89 Other specified soft tissue disorders

== ENCOUNTER → 2025-06-30 | Outpatient (CLI) | payer OTHER | LOC: M WUC 15:54 | PROVIDERS: ATTEND Student in an Organized Health Care Education/Training Program | DX: M79.672 Pain in left foot (principal); M79.671 Pain in right foot ==